=== PATIENT | male | born 1955 | race Caucasian/White ===

== ENCOUNTER 2017-06-18 20:22 | Observation (INO) | payer MEDICARE, MEDICAID ==
[~2017-06-18] VITALS: Ht 193 cm; Wt 91.3 kg
--- NOTE | 2017-06-18 20:38 | ED.ADGEN ---
Past History Past Medical History: Angina, CAD, Hypertension, Hypotension, Other Past Surgical History: Other Smoking: Cigarettes, Greater than 1 pack/day Adult General Chief Complaint Chief Complaint ".. I started getting chest pain.. about 2 hours ago.. I drank a sixpack.. and it was still there so I came in... I ve had [address]. [address] Garrido though I might need another one... I have a follow up this week.;.." Mr. CAN HPI Patient is a 61 year old male who presents with above hx and complaints who follows with Dr Jhaveri at cardiology. Pt. had prior OK's and *8 stents placed , last one 1 yr ago. Pt. does still smoke. Pt rate as constant into Rt shoulder and neck at 05/22, nothing seems to make it better. Pt. states movement of neck and Rt shoulder makes the pain worse. Pt. possible apt. with Dr. Jhaveri at for follow up apt. Review of Systems Review of Systems Constitutional: Denies fever or chills [] Eyes: Denies change in visual acuity, redness, or eye pain [] HENT: Denies nasal congestion or sore throat [] Respiratory: Denies cough or shortness of breath [] Cardiovascular: No additional information not addressed in [facility] [] GI: Denies abdominal pain, nausea, vomiting, bloody stools or diarrhea [] : Denies dysuria or hematuria [] Musculoskeletal: Denies back pain or joint pain [] Integument: Denies rash or skin lesions [] Neurologic: Denies headache, focal weakness or sensory changes [] Endocrine: Denies polyuria or polydipsia [] Family History Family History Non- contributory Current Medications Current Medications Current Medications Medications (Trade) Dose Ordered Sig/Nathalie Start Time Stop Time Status Last Admin Dose Admin Enoxaparin Sodium (Lovenox 100mg Syringe) 90 mg 1X ONCE 06/18/17 21:00 06/18/17 21:01 DC 06/18/17 21:00 90 MG Enoxaparin Sodium (Lovenox 150mg Syringe) 90 mg 1X ONCE 06/18/17 20:45 06/18/17 20:53 DC Lactated Ringer's 1,000 ml @ 1,000 mls/hr Q1H 06/18/17 20:50 06/18/17 21:11 DC 06/18/17 21:04 1,000 MLS/HR Morphine Sulfate (Morphine 2mg Syringe) 2 mg 1X ONCE 06/18/17 20:50 06/18/17 20:51 DC 06/18/17 21:07 2 MG Nitroglycerin (Nitro-Bid Oint) 0.5 inch 1X ONCE 06/18/17 20:50 06/18/17 20:51 DC See Nursing for home meds. Allergies Allergies Allergies Coded Allergies Type Severity Reaction Last Updated Verified No Known Drug Allergies 06/18/17 No Physical Exam Physical Exam Constitutional: , in mild distress, non-toxic appearance. [] HENT: Normocephalic, atraumatic, bilateral external ears normal, oropharynx moist, no oral exudates, nose normal. []Thyroid mass . Lt. Eyes: PERRLA, EOMI, conjunctiva normal, no discharge. [] Neck: Normal range of motion, no tenderness, supple, no stridor. [] Cardiovascular:Heart rate regular rhythm, no murmur [] Lungs & Thorax: Bilateral breath sounds equal at apex with scattered wheezes on auscultation [] Abdomen: Bowel sounds normal, soft, no tenderness, no masses, no pulsatile masses. [] Skin: Warm, dry, no erythema, no rash. [] Back: No tenderness, no CVA tenderness. [] Extremities: No tenderness, no cyanosis, no clubbing, ROM intact, no edema. [] No cording noted on leg. Neurologic: Alert and oriented X 3, normal motor function, normal sensory function, no focal deficits noted. [] Psychologic: Affect normal, judgement normal, mood normal. [] Current Patient Data Vital Signs Vital Signs Date Time Temp Pulse Resp B/P (MAP) Pulse Ox O2 Delivery O2 Flow Rate FiO2 06/18/17 21:24 76 18 96/48 (64) 94 06/18/17 20:39 Room Air 06/18/17 20:25 97.8 Lab Results Laboratory Tests Test 06/18/17 20:20 06/18/17 20:35 06/18/17 20:41 Urine Collection Type Unknown Urine Color Straw Urine Clarity Clear Urine pH 6.0 Urine Specific [place] <=1.005 Urine Protein Neg (NEG-TRACE) Urine Glucose (UA) Neg mg/dL (NEG) Urine Ketones (Stick) Neg mg/dL (NEG) Urine Blood Neg (NEG) Urine Nitrite Neg (NEG) Urine Bilirubin Neg (NEG) Urine Urobilinogen Dipstick 0.2 mg/dL (0.2 mg/dL) Urine Leukocyte Esterase Neg (NEG) Urine RBC 0 /HPF (0-2) Urine WBC Rare /HPF (0-4) Urine Squamous Epithelial Cells None /LPF Urine Bacteria 0 /HPF (0-FEW) Urine Opiates Screen Neg (NEG) Urine Methadone Screen Neg (NEG) Urine Barbiturates Neg (NEG) Urine Phencyclidine Screen Neg (NEG) Urine Amphetamine/Methamphetamine Neg (NEG) Urine Benzodiazepines Screen Neg (NEG) Urine Cocaine Screen Neg (NEG) Urine Cannabinoids Screen Neg (NEG) Urine Ethyl Alcohol Pos (NEG) White Blood Count 9.7 x10^3/uL (4.0-11.0) Red Blood Count 5.34 x10^6/uL (4.30-5.70) Hemoglobin 16.5 g/dL (13.0-17.5) Hematocrit 49.6 % (39.0-53.0) Mean Corpuscular Volume 93 fL (79-100) Mean Corpuscular Hemoglobin 31 pg (25-35) Mean Corpuscular Hemoglobin Concent 33 g/dL (31-37) Red Cell Distribution Width 14.3 % (11.5-14.5) Platelet Count 234 x10^3/uL (140-400) Neutrophils (%) (Auto) 65 % (31-73) Lymphocytes (%) (Auto) 24 % (24-48) Monocytes (%) (Auto) 8 % (0-9) Eosinophils (%) (Auto) 2 % (0-3) Basophils (%) (Auto) 1 % (0-3) Neutrophils # (Auto) 6.3 x10^3uL (1.8-7.7) Lymphocytes # (Auto) 2.4 x10^3/uL (1.0-4.8) Monocytes # (Auto) 0.7 x10^3/uL (0.0-1.1) Eosinophils # (Auto) 0.2 x10^3/uL (0.0-0.7) Basophils # (Auto) 0.1 x10^3/uL (0.0-0.2) Prothrombin Time 10.4 SEC (9.4-11.4) Prothrombin Time INR 1.0 (0.9-1.1) PTT 27 SEC (23-33) D-Dimer (Jyoti) 0.21 mg/L (0.00-0.50) Sodium Level 136 mmol/L (136-145) Potassium Level 3.9 mmol/L (3.5-5.1) Chloride Level 99 mmol/L (98-107) Carbon Dioxide Level 25 mmol/L (21-32) Anion Gap 12 (6-14) Blood Urea Nitrogen 17 mg/dL (8-26) Creatinine 1.0 mg/dL (0.7-1.3) Estimated GFR (Cockcroft-Gault) 76.2 Glucose Level 87 mg/dL (70-99) Calcium Level 8.9 mg/dL (8.5-10.1) Magnesium Level 1.9 mg/dL (1.8-2.4) Total Bilirubin 0.3 mg/dL (0.2-1.0) Direct Bilirubin 0.1 mg/dL (0.0-0.2) Aspartate Amino Transferase (AST) 16 U/L (15-37) Alanine Aminotransferase (ALT) 27 U/L (16-63) Alkaline Phosphatase 72 U/L (46-116) Creatine Kinase 70 U/L (39-308) Creatine Kinase MB (Mass) < 0.5 ng/mL (0.0-3.6) Creatine Kinase MB Relative Index 0.7 % (0-4) Troponin I Quantitative < 0.017 ng/mL (0-0.055) FT-Yaz-Y-Type Natriuretic Peptide 27 pg/mL (0-124) Total Protein 7.3 g/dL (6.4-8.2) Albumin 4.0 g/dL (3.4-5.0) Lipase 312 U/L (73-393) Ethyl Alcohol Level 178 mg/dL (0-10) H POC Troponin I 0.00 ng/ml (<0.08) EKG EKG My interpretation of EKG shows sinus with J-point, PVC, and non-specific inferior changes or pericardial findings. [] No STEMI findings with contralateral changes. Radiology/Procedures Radiology/Procedures My interpretation of CXR shows small cardiac silhouette. COPD changes[] CT no PE, COPD Emphysematous changes, Thyroid mass Course & Med Decision Making Course & Med Decision Making Pertinent Labs and Imaging studies reviewed. (See chart for details). Discussed options of treatment with patient- Transfer to - Dr. Jhaveri ect. Pt. request admit here . Pt. declined transfer at this time. Will be admitted for serial trops. advised he would need transfer if his trop. bumps. or becames elevated. Discussed presentation, testing and tx. plan with Dr. Peralta. She will admit pt. on Tele. [] Final Impression Final Impression 1. Chest Pain. [] 2. Hx. HTN 3. Hypotension 4. Hx. COPD 5. Hx. CADz- Stents x 8 6. 3.2 Cm - Thyroid Mass Problems: Dragon Disclaimer Dragon Disclaimer This electronic medical record was generated, in whole or in part, using a voice recognition dictation system. JOHN NEELY MD Jun 18, 2017 20:38
[2017-06-18] MEDS ORDERED: ENOXAPARIN ** NOTE DOSE ** SYRINGE SQ ONE ×3 (20:45→21:00)
[2017-06-18] MEDS ORDERED: MORPHINE SULFATE 2 MG/ML DISP.SYRIN. IV ONE (20:50)
[2017-06-18] MEDS ORDERED: IV RINGERS SOLUTION,LACTATED 1,000 ML IV SCH (20:50)
[2017-06-18] MEDS ORDERED: NITROGLYCERIN OINT 1 GM PACKET. TP ONE (20:50)
[2017-06-18 20:58] LABS: BASO # 0.1 x10^3/uL (0.0-0.2); BASO % 1 % (0-3); EOS # 0.2 x10^3/uL (0.0-0.7); EOS % 2 % (0-3); HEMATOCRIT 49.6 % (39.0-53.0); HEMOGLOBIN 16.5 g/dL (13.0-17.5); LYMPH # 2.4 x10^3/uL (1.0-4.8); LYMPH % 24 % (24-48); MEAN CORPUSCULAR HEMOGLOBIN 31 pg (25-35); MEAN CORPUSCULAR HGB CONC 33 g/dL (31-37); MEAN CORPUSCULAR VOLUME 93 fL (79-100); MONO # 0.7 x10^3/uL (0.0-1.1); MONO % 8 % (0-9); NEUT # 6.3 x10^3uL (1.8-7.7); NEUT % 65 % (31-73); PLATELET COUNT 234 x10^3/uL (140-400); RED BLOOD COUNT 5.34 x10^6/uL (4.30-5.70); RED CELL DISTRIBUTION WIDTH 14.3 % (11.5-14.5); WHITE BLOOD COUNT 9.7 x10^3/uL (4.0-11.0)
[2017-06-18 21:23] LABS: ALK PHOS 72 U/L (46-116); ALT (SGPT) 27 U/L (16-63); ANION GAP 12 (6-14); AST (SGOT) 16 U/L (15-37); BLOOD UREA NITROGEN 17 mg/dL (8-26); CALCIUM 8.9 mg/dL (8.5-10.1); CARBON DIOXIDE 25 mmol/L (21-32); CHLORIDE 99 mmol/L (98-107); CREATINE KINASE 70 U/L (39-308); DIRECT BILIRUBIN 0.1 mg/dL (0.0-0.2); GFR 76.2; GLUCOSE 87 mg/dL (70-99); LIPASE 312 U/L (73-393); MAGNESIUM 1.9 mg/dL (1.8-2.4); POTASSIUM 3.9 mmol/L (3.5-5.1); SODIUM 136 mmol/L (136-145); TOTAL BILIRUBIN 0.3 mg/dL (0.2-1.0); TOTAL PROTEIN 7.3 g/dL (6.4-8.2)
[2017-06-18 21:25] LABS: AMPHETAMINE/METHAMPHETAMINE NEG (NEG); BARBITURATES NEG (NEG); BENZODIAZEPINES NEG (NEG); CANNABINOIDS NEG (NEG); COCAINE NEG (NEG); METHADONE NEG (NEG); OPIATES NEG (NEG); PHENCYCLIDINE NEG (NEG)
[2017-06-18 21:26] LABS: BACTERIA,URINE 0 /HPF (0-FEW); BILIRUBIN,URINE NEG (NEG); CLARITY,URINE CLEAR; COLOR,URINE STRAW; GLUCOSE,URINE NEG (NEG); NITRITE,URINE NEG (NEG); RBC,URINE 0 /HPF (0-2); UROBILINOGEN,URINE 0.2 mg/dL (0.2 mg/dL); WBC,URINE RARE /HPF (0-4)
[2017-06-18] MEDS ORDERED: ONDANSETRON PF 4 MG/2 ML VIAL. IV PRN (21:45)
[2017-06-18] MEDS ORDERED: CLOPIDOGREL BISULFATE 75 MG TABLET PO ONE (21:45)
[2017-06-18] MEDS ORDERED: IV RINGERS SOLUTION,LACTATED 1,000 ML IV ONE ×2 (21:46→22:00)
[2017-06-18] MEDS ORDERED: MORPHINE SULFATE 10 MG/ML SYRINGE. IV ONE (22:00)
[2017-06-18] MEDS ORDERED: ASPIRIN ENTERIC COATED 81 MG TABLET.DR. PO ONE (22:00)
[2017-06-18] MEDS ORDERED: IOHEXOL 300 MG/ML 75 ML VIAL. IV ONE (22:00)
--- NOTE | 2017-06-18 22:41 | RAD ---
Examination: CT CERVICAL SPINE INDICATION: NECK PAIN, NO KNOWN INJURY COMPARISON: None Available. Technique: 2.0 mm contiguous axial images were obtained from the skull base through the cervicothoracic junction in both bone and soft tissue algorithm. Additional sagittal and coronal reconstructions were also performed. FINDINGS: Vertebral body height and alignment are maintained. Cervical lordosis is preserved. The lateral masses of C1 are aligned upon C2. No fractures identified. The bony canal is patent throughout. Mild multilevel intervertebral disc height loss identified throughout the cervical spine most at C3-C4, C4-C5, C5-C6, C6-C7 vertebral levels. The bilateral facets are well aligned. Mild multilevel uncovertebral degenerative changes. The paraspinous soft tissues are unremarkable. Visualized intracranial contents are unremarkable. Mild emphysematous changes identified in the apical lungs. IMPRESSION: 1. No acute osseous findings. 2. Multilevel mild degenerative changes. If pain persists follow-up MRI is recommended. Electronically signed by: Jamari Boone MD (06/18/2017 10:38 PM) [facility]
[2017-06-18] MEDS: MORPHINE SULFATE 2 MG/ML DISP.SYRIN. IV PRN ×2 (22:47→23:21)
--- NOTE | 2017-06-18 22:50 | RAD ---
Examination: CT angiography chest HISTORY: History of chest pain, shortness of breath COMPARISON: None available Technique: Axial CT angiography images were performed with IV contrast. Coronal sagittal 3-D MIP reformats are performed. Exposure: One or more of the following individualized dose reduction techniques were utilized for this examination: 1. Automated exposure control 2. Adjustment of the mA and/or kV according to patient size 3. Use of iterative reconstruction technique FINDINGS: There is a 3.3 x 2.2 cm hypodense mass identified in the left lobe of the thyroid gland Mild aortic atherosclerosis. Diffuse coronary artery calcifications identified. There is no evidence of filling defect identified in the main pulmonary arterial trunk and right and left main pulmonary arteries. No evidence of filling defect identified in the distal lobar, segmental branches of the pulmonary arteries. Mild emphysematous changes identified in the apical lungs. Minimal bibasilar lung atelectasis. Mild degenerative changes identified in the thoracic spine. The visualized liver, spleen, adrenals grossly appears unremarkable. IMPRESSION: 1. No evidence of pulmonary embolism. 2. Coronary artery calcifications. 2. Emphysematous changes identified in the bilateral lungs. 4. 3.2 cm mass identified in the left lobe of the thyroid gland. Recommend follow-up ultrasound thyroid gland is recommended. Electronically signed by: Jamari Boone MD (06/18/2017 10:47 PM) [facility]
[2017-06-18 23:18] VITALS: BP 129/79
--- NOTE | 2017-06-18 23:35 | NUR ---
Pt was admitted to [address] [place] [address] from ER, via [facility] accompanied by EMS and nursing staff. Pt self transferred from [facility] to bed with stand-by assist, steady gait noted. Pt here for chest pain x2 weeks. Pt normally sees Dr. Jhaveri and already has a Cardiac Cath scheduled for this coming Friday (06/23/17) per pt. Pt was drinking tonight with friends but stated that he normally only drinks a few tie a month socially. Pt is a 1/2-1 ppd smoker, RT consulted for smoking cessation. Vital signs assessed and stable. Pt placed on Telemetry, SR noted on monitor. Health history and home medications reviewed with pt. Plavix & Lovenox for VTE. Pt UTD on Pneumonia vaccine. Pt lives at home with a roommate. Pt was given written information regarding hospital policies, unit procedures and contact persons. Valuables were checked and left at bedside. Box lunch given but will be NPO after midnight, understanding verbalized. Call light within reach.
[2017-06-19] MEDS ORDERED: CLOP75TA PO (01:38)
[2017-06-19] MEDS ORDERED: ROSU40TA29 PO (01:38)
[2017-06-19] MEDS ORDERED: ALBU18HF INH (01:38)
[2017-06-19] MEDS ORDERED: METO50TA2 PO (01:38)
[2017-06-19] MEDS ORDERED: PANT40TA5 PO (01:38)
[2017-06-19] MEDS ORDERED: NITR0.4T22 SL (01:38)
[2017-06-19] MEDS ORDERED: BUDE10.2 INH (01:38)
[2017-06-19] MEDS ORDERED: ASPI81TA50 PO (01:38)
[2017-06-19] MEDS ORDERED: LISI10TA2 PO (01:38)
--- NOTE | 2017-06-19 02:24 | EKG ---
[address] [address] Test Date: 2017-06-18 Test Time: 20:36:06 Pat Name: KYLE PERRY Department: Room: 115 A Gender: M Inclusion Paraeducator: : [id number] Requested By: JOHN NEELY Order Number: [id number] Reading MD: Sean Malone Measurements Intervals [place] Rate: 85 P: 64 SC: 174 QRS: 64 QRSD: 118 T: 37 QT: 362 QTc: 431 Interpretive Statements SINUS RHYTHM ST & T ABNORMALITY, CONSIDER RECENT INFERIOR MYOCARDIAL OR PERICARDIAL DAMAGE Electronically Signed On 06-19-2017 16:41:37 CDT by Sean Malone
[2017-06-19 05:50] VITALS: BP 126/63
[2017-06-19] MEDS ORDERED: NITROGLYCERIN SUBLINGUAL 0.4 MG BOTTLE OF 25. SL PRN (07:45)
[2017-06-19] MEDS ORDERED: ALBUTEROL SULFATE 8GM INHALER. INH PRN (07:45)
--- NOTE | 2017-06-19 08:19 | RAD ---
Indication chest pain. A single view of the chest was obtained. No prior imaging of the chest is available. The heart and pulmonary vessels appear normal. The lungs are clear of acute infiltrates. There is no pleural fluid or pneumothorax. The visualized bony structures appear grossly intact. IMPRESSION: No acute or focal process seen in the chest
[2017-06-19 08:24] LABS: BASO # 0.1 x10^3/uL (0.0-0.2); BASO % 1 % (0-3); EOS # 0.1 x10^3/uL (0.0-0.7); EOS % 2 % (0-3); HEMATOCRIT 48.2 % (39.0-53.0); LYMPH # 1.5 x10^3/uL (1.0-4.8); LYMPH % 20 % (24-48); MEAN CORPUSCULAR HEMOGLOBIN 31 pg (25-35); MEAN CORPUSCULAR HGB CONC 33 g/dL (31-37); MEAN CORPUSCULAR VOLUME 93 fL (79-100); MONO # 0.5 x10^3/uL (0.0-1.1); MONO % 7 % (0-9); NEUT # 5.3 x10^3uL (1.8-7.7); NEUT % 71 % (31-73); PLATELET COUNT 216 x10^3/uL (140-400); RED BLOOD COUNT 5.18 x10^6/uL (4.30-5.70); RED CELL DISTRIBUTION WIDTH 14.5 % (11.5-14.5); WHITE BLOOD COUNT 7.5 x10^3/uL (4.0-11.0)
[2017-06-19] MEDS ORDERED: ALBUTEROL SULFATE 2.5 MG/3 ML NEBU. NEB PRN (08:30)
[2017-06-19 08:39] LABS: CALCIUM 8.7 mg/dL (8.5-10.1); GFR 76.2; POTASSIUM 4.1 mmol/L (3.5-5.1)
[2017-06-19 08:55] LABS: CREATINE KINASE 60 U/L (39-308)
[2017-06-19] MEDS ORDERED: LISINOPRIL 10 MG TABLET PO SCH (09:00)
[2017-06-19] MEDS ORDERED: NON FORMULARY ITEM (Budesonide/Formoterol Fumarate (Symbicort 160-4.5 Mcg Inhaler) 1 PUFF) INH SCH (09:00)
[2017-06-19] MEDS ORDERED: METOPROLOL TART IMMED RELEASE 50 MG TABLET PO SCH (09:00)
[2017-06-19] MEDS ORDERED: ENOXAPARIN ** NOTE DOSE ** SYRINGE SQ SCH (09:00)
[2017-06-19] MEDS ORDERED: BUDESONIDE 0.5 MG/2 ML NEBU NEB SCH (09:00)
[2017-06-19] MEDS ORDERED: ASPIRIN ENTERIC COATED 81 MG TABLET.DR. PO SCH (09:00)
[2017-06-19] MEDS ORDERED: PANTOPRAZOLE 40 MG TABLET. PO SCH (09:00)
[2017-06-19] MEDS ORDERED: CLOPIDOGREL BISULFATE 75 MG TABLET PO SCH (09:00)
--- NOTE | 2017-06-19 09:35 | PDOC2 ---
CONSULT Date of Admission DATE: 06/19/17 TIME: 09:32 Reason for Consult: cp Problem List Problems Medical Problems: (1) Chest pain Status: Acute History of Present Illness Mr Prasad is a 61 year old male with history of coronary artery disease, PCI with stents x 8, hypertension and hyperlipidemia. He presents with complaints of pain across his shoulders, right neck and down right arm that has been ongoing and constant for about 2 weeks. He denies increase with exertion, associated dyspnea, diaphoresis or nausea/vomiting. He reports he has increased pain with movement of his head and neck. He reports he has a follow up with Dr Jhaveri tomorrow and a cardiac cath scheduled for Friday "because I haven't had one in over a year". He denies congestive symptoms, palpitations, lightheadedness or syncope. He denies any significant change in his functional capacity. He does report pain in both legs with walking that resolves with a few minutes of rest and states Dr Jhaveri is planning to look at his leg arteries as well as his heart on Friday. Past Medical History CAD, [place], multiple cardiac stents, hypertension, hyperlipidemia, TIA, GERD, probable peripheral vascular disease Past Surgical History none Family History emphysema, CAD Social History smokes less than 1ppd, occasional ETOH reported (usually once or twice per week , 6 pack) reported, no illicit drugs Current Medications Current Medications Morphine Sulfate (Morphine 2mg Syringe) 2 mg 1X ONCE IV Last administered on 21:07; Start 06/18/17 at 20:50; Stop 06/18/17 at 20:51; Status DC Enoxaparin Sodium (Lovenox 150mg Syringe) 90 mg 1X ONCE SQ ; Start 06/18/17 at 20:45; Stop 06/18/17 at 20:53; Status DC Lactated Ringer's 1,000 ml @ 1,000 mls/hr Q1H IV Last administered on 21:04; Start 06/18/17 at 20:50; Stop 06/18/17 at 21:11; Status DC Enoxaparin Sodium (Lovenox 100mg Syringe) 100 mg 1X ONCE SQ ; Start 06/18/17 at 21:00; Stop 06/18/17 at 21:00; Status DC Nitroglycerin (Nitro-Bid Oint) 0.5 inch 1X ONCE TP ; Start 06/18/17 at 20:50; Stop 06/18/17 at 20:51; Status DC Enoxaparin Sodium (Lovenox 100mg Syringe) 90 mg 1X ONCE SQ Last administered on 06/18/17 21:00; Start 06/18/17 at 21:00; Stop 06/18/17 at 21:01; Status DC Iohexol (Omnipaque 300 Mg/ml) 75 ml 1X ONCE IV Last administered on 06/18/17 22:17; Start 06/18/17 at 22:00; Stop 06/18/17 at 22:01; Status DC Lactated Ringer's 1,000 ml @ As Directed STK-MED ONCE IV ; Start 06/18/17 at 21: 46; Stop 06/18/17 at 21:47; Status DC Ondansetron HCl (Zofran) 4 mg PRN Q4HRS PRN IV NAUSEA/VOMITING; Start 06/18/17 at 21:45; Stop 06/19/17 at 21:44 Morphine Sulfate (Morphine 2mg Syringe) 2 mg PRN Q2HR PRN IV PAIN Last administered on 06/18/17 23:21; Start 06/18/17 at 21:45; Stop 06/19/17 at 21:44 Enoxaparin Sodium (Lovenox 100mg Syringe) 90 mg Q12HR SQ ; Start 06/19/17 at 09: 00 Aspirin (Aspirin Enteric Coated) 81 mg 1X ONCE PO Last administered on 23:19; Start 06/18/17 at 22:00; Stop 06/18/17 at 22:01; Status DC Clopidogrel Bisulfate (Plavix) 75 mg 1X ONCE PO Last administered on 06/18/17 23:20; Start 06/18/17 at 21:45; Stop 06/18/17 at 21:57; Status DC Lactated Ringer's 1,000 ml @ 1,000 mls/hr 1X ONCE IV Last administered on 06/18 21:53; Start 06/18/17 at 22:00; Stop 06/18/17 at 22:59; Status DC Morphine Sulfate (Morphine 10mg Syringe) 2 mg 1X ONCE IV ; Start 06/18/17 at 22: 00; Stop 06/18/17 at 22:01; Status DC Albuterol Sulfate (Ventolin Hfa) 1 puff Q4HRS PRN INH COPD; Start 06/19/17 at 07 :45; Stop 06/19/17 at 08:21; Status DC Aspirin (Aspirin Enteric Coated) 81 mg DAILY PO Last administered on 06/19/17 08:32; Start 06/19/17 at 09:00 Clopidogrel Bisulfate (Plavix) 75 mg DAILY PO Last administered on 06/19/17 08: 33; Start 06/19/17 at 09:00 Lisinopril (Prinivil) 10 mg DAILY PO Last administered on 06/19/17 08:32; Start 06/19/17 at 09:00 Metoprolol Tartrate (Lopressor) 50 mg BID PO Last administered on 06/19/17 08: 33; Start 06/19/17 at 09:00 Nitroglycerin (Nitrostat) 0.4 mg PRN Q5MIN PRN SL Chest Pain; Start 06/19/17 at 07:45 Pantoprazole Sodium (Protonix) 40 mg DAILY PO Last administered on 06/19/17 08: 32; Start 06/19/17 at 09:00 Non-Formulary Medication 1 puff DAILY INH ; Start 06/19/17 at 09:00; Stop at 09:00; Status DC Atorvastatin Calcium (Lipitor) 80 mg QHS PO ; Start 06/19/17 at 21:00 Albuterol Sulfate (Ventolin) 2.5 mg PRN Q4HRS PRN NEB SHORTNESS OF BREATH; Start 06/19/17 at 08:30 Budesonide (Pulmicort) 0.5 mg RTBID NEB ; Start 06/19/17 at 09:00 Albuterol Sulfate (Ventolin) 2.5 mg RTQID NEB ; Start 06/19/17 at 09:00 Active Scripts Active Reported Symbicort 160-4.5 Mcg Inhaler (Budesonide/Formoterol Fumarate) 10.2 Gm Hfa.aer.ad 1 Puff INH DAILY LAST DOSE GIVEN: DATE: TIME: NEXT DOSE DUE: DATE: TIME: Ventolin Hfa Inhaler (Albuterol Sulfate) 18 Gm Hfa.aer.ad 1 Puff INH PRN Q4- 6HRS PRN LAST DOSE GIVEN: DATE: TIME: NEXT DOSE DUE: DATE: TIME: Aspir-Low (Aspirin) 81 Mg Tablet.dr 81 Mg PO DAILY LAST DOSE GIVEN: DATE: TIME: NEXT DOSE DUE: DATE: TIME: Rosuvastatin Calcium 40 Mg Tablet 40 Mg PO HS LAST DOSE GIVEN: DATE: TIME: NEXT DOSE DUE: DATE: TIME: Clopidogrel (Clopidogrel Bisulfate) 75 Mg Tablet 75 Mg PO DAILY LAST DOSE GIVEN: DATE: TIME: NEXT DOSE DUE: DATE: TIME: Pantoprazole Sodium 40 Mg Tablet.dr 40 Mg PO DAILY LAST DOSE GIVEN: DATE: TIME: NEXT DOSE DUE: DATE: TIME: Metoprolol Tartrate 50 Mg Tablet 50 Mg PO BID LAST DOSE GIVEN: DATE: TIME: NEXT DOSE DUE: DATE: TIME: NITROGLYCERIN SubLingual (Nitroglycerin) 0.4 Mg Tab.subl 0.4 Mg SL PRN PRN LAST DOSE GIVEN: DATE: TIME: NEXT DOSE DUE: DATE: TIME: Lisinopril 10 Mg Tablet 10 Mg PO DAILY LAST DOSE GIVEN: DATE: TIME: NEXT DOSE DUE: DATE: TIME: Allergies: Coded Allergies: No Known Drug Allergies (Unverified , 06/18/17) Review of System as per HPI or negative General: Alert, Oriented X3, Cooperative, No acute distress HEENT: Atraumatic, EOMI, Mucous membr. moist/pink Lungs: Clear to auscultation Heart: Regular rate, Normal S1, Normal S2 Abdomen: Normal bowel sounds, Soft, No tenderness Extremities: No cyanosis, No edema, Other (decreased but palpable DP pulses) Neuro: Normal speech, Strength at 5/5 X4 ext, Other (reproducible tenderness right neck/shoulder pain ) Psych/Mental Status: Mental status NL, Mood NL VITALS Vital Signs Date Time Temp Pulse Resp B/P (MAP) Pulse Ox O2 Delivery O2 Flow Rate FiO2 06/19/17 08:33 86 126/63 06/19/17 07:59 Room Air 06/19/17 05:50 98.2 20 94 Labs Laboratory Tests Test 06/18/17 20:20 06/18/17 20:35 06/18/17 20:41 06/19/17 02:40 Urine Collection Type Unknown Urine Color Straw Urine Clarity Clear Urine pH 6.0 Urine Specific [place] <=1.005 Urine Protein Neg (NEG-TRACE) Urine Glucose (UA) Neg mg/dL (NEG) Urine Ketones (Stick) Neg mg/dL (NEG) Urine Blood Neg (NEG) Urine Nitrite Neg (NEG) Urine Bilirubin Neg (NEG) Urine Urobilinogen Dipstick 0.2 mg/dL (0.2 mg/dL) Urine Leukocyte Esterase Neg (NEG) Urine RBC 0 /HPF (0-2) Urine WBC Rare /HPF (0-4) Urine Squamous Epithelial Cells None /LPF Urine Bacteria 0 /HPF (0-FEW) Urine Opiates Screen Neg (NEG) Urine Methadone Screen Neg (NEG) Urine Barbiturates Neg (NEG) Urine Phencyclidine Screen Neg (NEG) Urine Amphetamine/Methamphetamine Neg (NEG) Urine Benzodiazepines Screen Neg (NEG) Urine Cocaine Screen Neg (NEG) Urine Cannabinoids Screen Neg (NEG) Urine Ethyl Alcohol Pos (NEG) White Blood Count 9.7 x10^3/uL (4.0-11.0) Red Blood Count 5.34 x10^6/uL (4.30-5.70) Hemoglobin 16.5 g/dL (13.0-17.5) Hematocrit 49.6 % (39.0-53.0) Mean Corpuscular Volume 93 fL (79-100) Mean Corpuscular Hemoglobin 31 pg (25-35) Mean Corpuscular Hemoglobin Concent 33 g/dL (31-37) Red Cell Distribution Width 14.3 % (11.5-14.5) Platelet Count 234 x10^3/uL (140-400) Neutrophils (%) (Auto) 65 % (31-73) Lymphocytes (%) (Auto) 24 % (24-48) Monocytes (%) (Auto) 8 % (0-9) Eosinophils (%) (Auto) 2 % (0-3) Basophils (%) (Auto) 1 % (0-3) Neutrophils # (Auto) 6.3 x10^3uL (1.8-7.7) Lymphocytes # (Auto) 2.4 x10^3/uL (1.0-4.8) Monocytes # (Auto) 0.7 x10^3/uL (0.0-1.1) Eosinophils # (Auto) 0.2 x10^3/uL (0.0-0.7) Basophils # (Auto) 0.1 x10^3/uL (0.0-0.2) Prothrombin Time 10.4 SEC (9.4-11.4) Prothromb Time International Ratio 1.0 (0.9-1.1) Activated Partial Thromboplast Time 27 SEC (23-33) D-Dimer (Jyoti) 0.21 mg/L (0.00-0.50) Sodium Level 136 mmol/L (136-145) Potassium Level 3.9 mmol/L (3.5-5.1) Chloride Level 99 mmol/L (98-107) Carbon Dioxide Level 25 mmol/L (21-32) Anion Gap 12 (6-14) Blood Urea Nitrogen 17 mg/dL (8-26) Creatinine 1.0 mg/dL (0.7-1.3) Estimated GFR (Cockcroft-Gault) 76.2 Glucose Level 87 mg/dL (70-99) Calcium Level 8.9 mg/dL (8.5-10.1) Magnesium Level 1.9 mg/dL (1.8-2.4) Total Bilirubin 0.3 mg/dL (0.2-1.0) Direct Bilirubin 0.1 mg/dL (0.0-0.2) Aspartate Amino Transf (AST/SGOT) 16 U/L (15-37) Alanine Aminotransferase (ALT/SGPT) 27 U/L (16-63) Alkaline Phosphatase 72 U/L (46-116) Creatine Kinase 70 U/L (39-308) 67 U/L (39-308) Creatine Kinase MB (Mass) < 0.5 ng/mL (0.0-3.6) 0.6 ng/mL (0.0-3.6) Creatine Kinase MB Relative Index 0.7 % (0-4) 0.9 % (0-4) Troponin I Quantitative < 0.017 ng/mL (0-0.055) < 0.017 ng/mL (0-0.055) VD-Xba-Z-Type Natriuretic Peptide 27 pg/mL (0-124) Total Protein 7.3 g/dL (6.4-8.2) Albumin 4.0 g/dL (3.4-5.0) Lipase 312 U/L (73-393) Ethyl Alcohol Level 178 mg/dL (0-10) Bedside Troponin I 0.00 ng/ml (<0.08) Test 06/19/17 08:12 White Blood Count 7.5 x10^3/uL (4.0-11.0) Red Blood Count 5.18 x10^6/uL (4.30-5.70) Hemoglobin 16.0 g/dL (13.0-17.5) Hematocrit 48.2 % (39.0-53.0) Mean Corpuscular Volume 93 fL (79-100) Mean Corpuscular Hemoglobin 31 pg (25-35) Mean Corpuscular Hemoglobin Concent 33 g/dL (31-37) Red Cell Distribution Width 14.5 % (11.5-14.5) Platelet Count 216 x10^3/uL (140-400) Neutrophils (%) (Auto) 71 % (31-73) Lymphocytes (%) (Auto) 20 % (24-48) Monocytes (%) (Auto) 7 % (0-9) Eosinophils (%) (Auto) 2 % (0-3) Basophils (%) (Auto) 1 % (0-3) Neutrophils # (Auto) 5.3 x10^3uL (1.8-7.7) Lymphocytes # (Auto) 1.5 x10^3/uL (1.0-4.8) Monocytes # (Auto) 0.5 x10^3/uL (0.0-1.1) Eosinophils # (Auto) 0.1 x10^3/uL (0.0-0.7) Basophils # (Auto) 0.1 x10^3/uL (0.0-0.2) Sodium Level 140 mmol/L (136-145) Potassium Level 4.1 mmol/L (3.5-5.1) Chloride Level 105 mmol/L (98-107) Carbon Dioxide Level 29 mmol/L (21-32) Anion Gap 6 (6-14) Blood Urea Nitrogen 14 mg/dL (8-26) Creatinine 1.0 mg/dL (0.7-1.3) Estimated GFR (Cockcroft-Gault) 76.2 Glucose Level 110 mg/dL (70-99) Calcium Level 8.7 mg/dL (8.5-10.1) Creatine Kinase 60 U/L (39-308) Creatine Kinase MB (Mass) < 0.5 ng/mL (0.0-3.6) Creatine Kinase MB Relative Index 0.8 % (0-4) Troponin I Quantitative < 0.017 ng/mL (0-0.055) Images EKG - sinus rhythm with non specific changes CXR - no acute abn CT chest - IMPRESSION: 1. No evidence of pulmonary embolism. 2. Coronary artery calcifications. 3. Emphysematous changes identified in the bilateral lungs. 4. 3.2 cm mass identified in the left lobe of the thyroid gland. Recommend follow-up ultrasound thyroid gland is recommended. CT c spine 1. No acute osseous findings. 2. Multilevel mild degenerative changes. If pain persists follow-up MRI is recommended. Assessment/Plan 1. shoulder,arm pain - likely radicular in nature. Prior anginal symptoms were shoulder pain, however no acute EKG changes, normal cardiac enzymes x 3 sets and he reports follow up tomorrow with his normal curtain stretcher with heart cath for Friday. 2. CAD with prior multiple stents - continue medical therapy with aspirin, beta blockers, statin therapy and heart cath as scheduled with primary curtain stretcher. 3. hypertension - home medications 4. hyperlipidemia - continue statin, FLP pending 5. tobaccoism - cessation encouraged Problems: POLO ELLINGTON APRN Jun 19, 2017 09:35
[2017-06-19] MEDS: ALBUTEROL SULFATE 2.5 MG/3 ML NEBU. NEB SCH ×2 (09:46→10:42)
[2017-06-19 10:07] VITALS: BP 106/70
--- NOTE | 2017-06-19 10:49 | NUR ---
Patient dismissed to home. Will follow up with Dr. Jhaveri as scheduled tomorrow. IV site d/c'd per protocol without difficulty. Reviewed home medications, follow-up instructions, and reasons to seek immediate medical attention with patient. Received verbalization of understanding, denies questions/needs. Patient awaiting ride at this time.
--- NOTE | 2017-06-19 16:31 | SSS ---
ADMIT DATE: Stay was greater than 8 hours and less than 24. Primary care was given by myself, Dr. Rafy Maguire. DISCHARGE DIAGNOSES: 1. Chest pain, myocardial infarction ruled out. 2. Coronary artery disease with multiple stents. 3. Thyroid mass - incidental finding. 4. Chronic obstructive pulmonary disease. 5. Peripheral vascular disease. 6. Tobacco use disorder. 7. Hypertension. 8. Hyperlipidemia. 9. Alcohol use ____. HOSPITAL COURSE: This is a 61-year-old male with known coronary artery disease, who presented to the Emergency Room with pain in the right arm and neck. It has been ongoing for a few weeks and was similar to anginal-type pain he has had in the past. Denies any exertional symptoms or whether he was doing anything, just pushing furniture or lifting anything heavy or exerting himself. Denies any diaphoresis. PAST MEDICAL HISTORY: The patient states "I have had eight heart attacks" starting in 2007, he has several stents. As a matter of fact, he is having a heart cath this coming Friday; also peripheral vascular disease, tobaccoism, occasional alcohol. MEDICATIONS: Reviewed. ALLERGIES: None. REVIEW OF SYSTEMS: Negative for weight loss. Positive for insomnia. Otherwise, negative. FAMILY HISTORY: Mother had heart problems. SOCIAL HISTORY: He smokes around a pack a day. He is disabled. 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 OBJECTIVE: VITAL SIGNS: Blood pressure 106/70, pulse 72, respirations 14, temperature 97.7, pulse ox is 98% on room air. Height 76 inches, weight 201.19 pounds. GENERAL: Somewhat unkempt male, in no acute distress. HEENT: His hearing is normal. His eyes are clear. His nose is patent. His throat was clear. NECK: Supple, without adenopathy, could not appreciate the thyroid mass. LUNGS: Clear to auscultation. CARDIOVASCULAR: Regular rhythm and rate. ABDOMEN: Soft, nontender. EXTREMITIES: Without edema, very weak dorsalis pedis pulses, could not palpate anterior tibial. Extremities are warm, however. LABORATORY DATA: Troponins negative x 3. D-dimer was negative. Urine was negative. PLAN: Discharge home. Follow up with a thyroid ultrasound. I did discuss this with him personally. Recommended also strongly that he quit smoking. He has a Cardiology appointment tomorrow, heart cath this coming the . RAFY MAGUIRE DO DR: MISBAH/klaudia JOB#: [id number] / [id number]
[2017-06-19] MEDS ORDERED: ATORVASTATIN CALCIUM 20 MG TABLET PO SCH (21:00)
== END 2017-06-19 10:54 | disposition home or self-care (01) ==
LOC: ER 20:22 → 1 SOUTH 21:30
PROVIDERS: ADMIT Family Medicine; ATTEND Family Medicine
DX: R07.89 Other chest pain (principal); I25.10 Atherosclerotic heart disease of native coronary artery without angina pectoris; J44.9 Chronic obstructive pulmonary disease, unspecified; E78.5 Hyperlipidemia, unspecified; F17.210 Nicotine dependence, cigarettes, uncomplicated; I10 Essential (primary) hypertension; I73.9 Peripheral vascular disease, unspecified; K21.9 Gastro-esophageal reflux disease without esophagitis; E04.9 Nontoxic goiter, unspecified; Z82.49 Family history of ischemic heart disease and other diseases of the circulatory system; Z86.73 Personal history of transient ischemic attack (TIA), and cerebral infarction without residual deficits; Z95.5 Presence of coronary angioplasty implant and graft; Z71.6 Tobacco abuse counseling
CPT/HCPCS: 36415; 71010; 71275; 72125; 80048; 80061; 80076; 80307; 81001; 82553; 83690; 83735; 83880; 84443; 84484; 85025; 85379; 85610; 85730; 93005; 94640; 94760; 96361; 96372; 96374; 96376; 99285; 99406; G0378; G0480; J1650; J2270; J7120; J7613; J7626; Q9967; G0379; G0479

== ENCOUNTER 2020-07-19 20:51 | Emergency (ER) | payer MEDICARE, MEDICAID ==
[~2020-07-19] VITALS: Ht 193 cm; Wt 89.8 kg
[~2020-07-19 20:51] MED LIST: ALBU2.5V8 INH; ASPI81TA50 PO; BUDE10.2 INH; CLOP75TA PO; LISI10TA2 PO; METO50TA6 PO; NITR0.4T22 SL; PANT40TA6 PO; ROSU40TA22 PO
[2020-07-19 20:55] VITALS: BP 135/79
--- NOTE | 2020-07-19 21:08 | PHYS DOC ---
Past History Past Medical History: Angina, CAD, Hypertension, Hypotension, Other Past Surgical History: Other Smoking: Cigarettes, Greater than 1 pack/day Alcohol Use: Heavy Drug Use: None General Adult EDM: Chief Complaint: CHEST PAIN HPI: HPI: Patient is a 64-year-old male who presents with right sided shoulder and arm pain. Patient states that the pain started 2 weeks ago when he tripped on a rug at home and fell on his arm. The pain has worsened in the past couple days. He currently has numbness and tingling down the right arm. He denies any old injuries in the right shoulder. The pain is constant and intermittently sharp. He denies any chest pain, left sided arm pain, shortness of breath, nausea, or vomiting. Review of Systems: Review of Systems: Constitutional: Denies fever or chills Eyes: Denies redness or eye pain HENT: Denies nasal congestion or sore throat Respiratory: Denies cough or shortness of breath Cardiovascular: Denies chest pain or palpitations GI: Denies abdominal pain, nausea, or vomiting : Denies dysuria or hematuria Musculoskeletal: Reports right sided upper back pain and right shoulder pain Integument: Denies rash or skin lesions Neurologic: Denies headache, reports numbness and tingling down his right arm Complete systems were reviewed and found to be within normal limits, except as documented in this note. Heart Score: HEART Score for Chest Pain: HEART Score for Chest Pain Response (Comments) Value History Slighlty/Non-Suspicious 0 ECG Normal 0 Age >45 - < 65 1 Risk Factors 1 or 2 Risk Factors 1 Troponin < Normal Limit 0 Total 2 Risk Factors: Risk Factors: DM, Current or recent (<one month) smoker, HTN, HLP, family history of CAD, obesity. Risk Scores: Score 0 - 3: 2.5% MACE over next 6 weeks - Discharge Home Score 4 - 6: 20.3% MACE over next 6 weeks - Admit for Clinical Observation Score 7 - 10: 72.7% MACE over next 6 weeks - Early Invasive Strategies Allergies: Allergies: Allergies Coded Allergies Type Severity Reaction Last Updated Verified No Known Drug Allergies 06/18/17 No Physical Exam: PE: Constitutional: Well developed, well nourished, no acute distress, non-toxic appearance HENT: Normocephalic, atraumatic Eyes: PERRL, EOMI, conjunctiva normal, no discharge Neck: Normal range of motion, no tenderness, supple Lungs & Thorax: No respiratory distress, equal chest rise and fall Abdomen: Soft, no tenderness Skin: Warm, dry, no erythema, no rash Back: Tenderness to palpation of the right paraspinal musculature at the levels of T1-T7, no CVA tenderness Extremities: Tenderness to palpation of the right scapular spine, ROM intact, no edema, radial pulses 3+/4 bilaterally Neurologic: Alert and oriented X 3, normal motor function, normal sensory function, no focal deficits noted Psychologic: Affect normal, judgment normal EKG: EKG: EKG at 2057 is normal sinus rhythm with a heart rate of 86, OH 178, QRS 112, QT/QTC 362/436 ms, with no ST elevations. Course & Med Decision Making: Course & Med Decision Making Pertinent Labs and Imaging studies reviewed. (See chart for details) Patient is a 64-year-old male who presents to the emergency room with right- sided shoulder and arm pain. Due to his extensive cardiac history, a cardiac work-up was ordered, which came back within normal limits. HEART score was at a 2. He was given a muscle relaxer and pain medication for his shoulder pain with improvement of his symptoms. I suspect he may have a muscle strain secondary to his fall 2 weeks ago. Patient was placed in a sling for comfort. He will be sent home with prescriptions for a muscle relaxer and [place]. Patient stable for discharge with outpatient follow-up with orthopedic surgery i f symptoms persist or worsen. Discussed findings and plan with patient, who acknowledges understanding and agreement. Juliette Disclaimer: Juliette Disclaimer: This electronic medical record was generated, in whole or in part, using a voice recognition dictation system. Departure Departure: Impression: Primary Impression: Muscle strain, shoulder region Qualified Codes: S46.911A - Strain of unspecified muscle, fascia and tendon at shoulder and upper arm level, right arm, initial encounter Disposition: 01 HOME/RESIDENCE PRIOR TO ADM Condition: STABLE Referrals: [facility] (PCP) Patient Instructions: Muscle Strain, Ildx-nd-Lfiz, Shoulder Pain, Nfgn-jw-Mnsm Scripts Hydrocodone Bit/Acetaminophen (NORCO 5-325 TABLET) 1 Each Tablet 0.5-1 TAB PO Q6HRS PRN for PAIN, #10 TAB Prov: GINNY VALENZUELA DO 07/19/20 Orphenadrine Citrate (ORPHENADRINE CITRATE) 100 Mg Tablet.er 1 TAB PO BID PRN for MUSCLE PAIN, #14 TAB Prov: GINNY VALENZUELA DO 07/19/20 GINNY VALENZUELA DO Jul 19, 2020 21:08
[2020-07-19] MEDS ORDERED: ORPHENADRINE CITRATE 60 MG/2 ML VIAL. IV ONE (21:15)
[2020-07-19] MEDS ORDERED: KETOROLAC 15 MG/ML VIAL. IVP ONE (21:15)
[2020-07-19] MEDS ORDERED: ASPIRIN 325 MG TABLET PO ONE (21:15)
--- NOTE | 2020-07-19 21:17 | EKG ---
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
[2020-07-19 21:39] LABS: BASO # 0.1 x10^3/uL (0.0-0.2); BASO % 1 % (0-3); EOS # 0.2 x10^3/uL (0.0-0.7); EOS % 4 % (0-3); HEMATOCRIT 46.1 % (39.0-53.0); HEMOGLOBIN 15.1 g/dL (13.0-17.5); LYMPH # 2.3 x10^3/uL (1.0-4.8); LYMPH % 35 % (24-48); MEAN CORPUSCULAR HEMOGLOBIN 32 pg (25-35); MEAN CORPUSCULAR HGB CONC 33 g/dL (31-37); MEAN CORPUSCULAR VOLUME 97 fL (79-100); MONO # 0.6 x10^3/uL (0.0-1.1); MONO % 9 % (0-9); NEUT # 3.4 x10^3uL (1.8-7.7); NEUT % 51 % (31-73); PLATELET COUNT 282 x10^3/uL (140-400); RED BLOOD COUNT 4.77 x10^6/uL (4.30-5.70); RED CELL DISTRIBUTION WIDTH 15.5 % (11.5-14.5); WHITE BLOOD COUNT 6.6 x10^3/uL (4.0-11.0)
[2020-07-19 21:40] LABS: CALCIUM 8.7 mg/dL (8.5-10.1); GFR 75.5; POTASSIUM 3.7 mmol/L (3.5-5.1)
[2020-07-19 21:58] LABS: MAGNESIUM 2.4 mg/dL (1.8-2.4); TOTAL BILIRUBIN 0.2 mg/dL (0.2-1.0); TOTAL PROTEIN 8.2 g/dL (6.4-8.2)
[2020-07-19] MEDS ORDERED: ORPH-16 PO (22:31)
[2020-07-19] MEDS ORDERED: HYDR-3165 PO (22:31)
--- NOTE | 2020-07-19 22:39 | RAD ---
Exam: Right shoulder 3 views INDICATION: Pain, history of TECHNIQUE: Frontal view of the left shoulder with internal and external rotation and transscapular Y views. Comparisons: None FINDINGS: Bone mineralization is normal. No acute or healed fractures. Soft tissues are unremarkable. Joint spaces are well-maintained. IMPRESSION: No acute osseous abnormality. Electronically signed by: José Luis Simental MD (07/19/2020 10:37 PM) ANIKET
--- NOTE | 2020-07-19 22:41 | RAD ---
Exam: Chest one view INDICATION: Pain, history of fall TECHNIQUE: Frontal view of the chest Comparisons: 06/18/2017 FINDINGS: The cardiomediastinal silhouette and pulmonary vessels are within normal limits. The lung and pleural spaces are clear. IMPRESSION: No acute cardiopulmonary process. Electronically signed by: José Luis Simentla MD (07/19/2020 10:38 PM) RONNY
== END 2020-07-19 22:52 | disposition home or self-care (01) ==
LOC: ER 20:51
DX: S46.911A Strain of unspecified muscle, fascia and tendon at shoulder and upper arm level, right arm, initial encounter (principal); M54.6 Pain in thoracic spine; I25.10 Atherosclerotic heart disease of native coronary artery without angina pectoris; I10 Essential (primary) hypertension; F17.210 Nicotine dependence, cigarettes, uncomplicated; F10.20 Alcohol dependence, uncomplicated; Y90.9 Presence of alcohol in blood, level not specified; W01.0XXA Fall on same level from slipping, tripping and stumbling without subsequent striking against object, initial encounter; Y93.89 Activity, other specified; Y92.098 Other place in other non-institutional residence as the place of occurrence of the external cause; Y99.8 Other external cause status
CPT/HCPCS: 36415; 71045; 73030; 80053; 82553; 83690; 83735; 83880; 84484; 85025; 85610; 85730; 93005; 96374; 96375; 99285; J1885; J2360

== ENCOUNTER 2020-10-22 20:03 | Emergency (ER) | payer MEDICARE, MEDICAID ==
[~2020-10-22] VITALS: Ht 193 cm; Wt 89.8 kg
[~2020-10-22 20:03] MED LIST changes: +HYDR-3165 PO; +ORPH-16 PO
[2020-10-22] MEDS ORDERED: IV NORMAL SALINE 1,000ML 1,000 ML IV ONE (20:30)
[2020-10-22] MEDS ORDERED: NITROGLYCERIN SUBLINGUAL 0.4 MG BOTTLE OF 25. SL PRN (20:30)
[2020-10-22] MEDS ORDERED: MORPHINE SULFATE 4 MG/ML DISP.SYRIN. IV ONE ×2 (21:00→22:00)
--- NOTE | 2020-10-22 21:10 | PHYS DOC ---
Past History Past Medical History: Angina, CAD, COPD, Hypertension, Hypotension, [place] Past Surgical History: Other Additional Past Surgical Histo: 8-10 cardiac stents Smoking: Cigarettes, Greater than 1 pack/day Alcohol Use: Heavy Drug Use: None Adult General Chief Complaint Chief Complaint: CHEST PAIN HPI HPI Patient is a 64-year-old male presents emergency department complaining that 3 days ago he had a "annoying feeling "to both of his arms so he decided to drink "a whole lot of beer "to try to deal with his annoying feeling of his arms. Patient states that after approximately 15 beers today he noticed that his chest started hurting and worried that since he has had 8 stents placed in the past that he might be having yet another heart attack. Patient is also worried that he tested positive with his Cologuard a couple of weeks ago and is still waiting for GI appointment. Patient reports his pain is a 7/10 on a 1-10 pain scale. Patient states the pain increases with deep breath and movement of his upper extremities. Patient denies recent injury to his chest. Patient denies shortness of breath. Patient denies cough congestion or chest palpitations. Patient denies nausea vomiting or diarrhea. Patient denies diaphoretic episodes. Patient denies recent fever or chills. Patient denies any other physical ailments or physical complaints. Patient reports he is a cigarette smoker, smokes occasional marijuana, does not use other illicit drugs, drinks beer daily. Review of Systems Review of Systems 14 body systems of review of systems have been reviewed. See HPI for pertinent positives and negative responses, otherwise all other systems are negative, nonpertinent or noncontributory. Current Medications Current Medications Sublingual nitroglycerin as needed. Current Medications Medications (Trade) Dose Ordered Sig/Nathalie Start Time Stop Time Status Last Admin Dose Admin Nitroglycerin (Nitrostat) 0.4 mg PRN Q5MIN PRN 10/22/20 20:30 Sodium Chloride 1,000 ml @ 1,000 mls/hr 1X ONCE 10/22/20 20:30 10/22/20 21:29 Allergies Allergies Allergies Coded Allergies Type Severity Reaction Last Updated Verified No Known Drug Allergies 06/18/17 No Physical Exam Physical Exam Constitutional: Well developed, well nourished, no acute distress, non-toxic appearance. HENT: Normocephalic, atraumatic, bilateral external ears normal, oropharynx moist, no oral exudates, nose normal. Eyes: PERRLA, EOMI, conjunctiva normal, no discharge. Neck: Normal range of motion, no tenderness, supple, no stridor. Cardiovascular:Heart rate regular rhythm, no murmur, heart sounds S1-S2, PMI just to the left of sternum intercostal ribs 4 5 region. Lungs & Thorax: Bilateral breath sounds clear to auscultation all lung castillo, no adventitious lung sounds appreciated. Sternal chest pain without radiation reproducible to palpation in the sternum. Reproducible to movement of left upper extremity. Reproducible to deep inspiration and expiration. Abdomen: Bowel sounds normal, soft, no tenderness, no masses, no pulsatile masses. Skin: Warm, dry, no erythema, no rash. Back: No tenderness, no CVA tenderness. Extremities: No tenderness, no cyanosis, no clubbing, ROM intact, no edema. Neurologic: Alert and oriented X 3, normal motor function, normal sensory function, no focal deficits noted. Psychologic: Affect normal, judgement normal, mood normal. Current Patient Data Vital Signs Vital Signs Date Time Temp Pulse Resp B/P (MAP) Pulse Ox O2 Delivery O2 Flow Rate FiO2 10/22/20 20:22 97.9 85 16 151/81 (104) 95 Room Air Lab Results Laboratory Tests Test 10/22/20 20:55 White Blood Count 7.3 x10^3/uL Red Blood Count 4.89 x10^6/uL Hemoglobin 15.3 g/dL Hematocrit 46.2 % Mean Corpuscular Volume 94 fL Mean Corpuscular Hemoglobin 31 pg Mean Corpuscular Hemoglobin Concent 33 g/dL Red Cell Distribution Width 14.3 % Platelet Count 207 x10^3/uL Neutrophils (%) (Auto) 65 % Lymphocytes (%) (Auto) 24 % Monocytes (%) (Auto) 7 % Eosinophils (%) (Auto) 2 % Basophils (%) (Auto) 1 % Neutrophils # (Auto) 4.7 x10^3uL Lymphocytes # (Auto) 1.8 x10^3/uL Monocytes # (Auto) 0.5 x10^3/uL Eosinophils # (Auto) 0.2 x10^3/uL Basophils # (Auto) 0.1 x10^3/uL Sodium Level 135 mmol/L Potassium Level 3.8 mmol/L Chloride Level 100 mmol/L Carbon Dioxide Level 25 mmol/L Anion Gap 10 Blood Urea Nitrogen 12 mg/dL Creatinine 1.0 mg/dL Estimated GFR (Cockcroft-Gault) 75.5 BUN/Creatinine Ratio 12 Glucose Level 90 mg/dL Calcium Level 8.3 mg/dL Phosphorus Level 4.9 mg/dL Magnesium Level 2.4 mg/dL Total Bilirubin 0.2 mg/dL Aspartate Amino Transf (AST/SGOT) 16 U/L Alanine Aminotransferase (ALT/SGPT) 24 U/L Alkaline Phosphatase 72 U/L Creatine Kinase 74 U/L Creatine Kinase MB (Mass) 0.7 ng/mL Creatine Kinase MB Relative Index 0.9 % Troponin I Quantitative < 0.017 ng/mL ON-Aey-T-Type Natriuretic Peptide 19 pg/mL Total Protein 7.7 g/dL Albumin 3.8 g/dL Albumin/Globulin Ratio 1.0 Lipase 254 U/L Ethyl Alcohol Level 281 mg/dL Current Medications Medications (Trade) Dose Ordered Sig/Nathalie Route PRN Reason Start Time Stop Time Status Last Admin Dose Admin Nitroglycerin (Nitrostat) 0.4 mg PRN Q5MIN PRN SL CHEST PAIN 10/22/20 20:30 10/22/20 20:58 DC Sodium Chloride 1,000 ml @ 1,000 mls/hr 1X ONCE IV 10/22/20 20:30 10/22/20 21:29 DC 10/22/20 20:52 Morphine Sulfate (Morphine 4mg Syringe) 4 mg 1X ONCE IV 10/22/20 21:00 10/22/20 21:01 DC 10/22/20 21:03 EKG EKG EKG performed at 2046 by house respiratory therapy staff, heart rate 82 bpm normal sinus rhythm without ectopy. NV interval 0.198, QTc interval 0.428, patient has approximate 1.[address] elevation in leads II, III and aVF. EKG inter preted by ED attending physician Dr. Brown. Second EKG performed 2117 by house respiratory therapy staff, heart rate 80 bpm, NV interval 0.190, QTc interval 0.442, no ST elevation changes from previous EKG in leads II, III, and aVF. EKG interpreted by ED attending physician Dr. Brown. Radiology/Procedures Radiology/Procedures SEX: M EXAM STATUS: REG ER ORD. PHYSICIAN: GINNY ROGER APRN REASON: CHEST PAIN PROCEDURE: CHEST PA & LATERAL Chest radiograph 10/22/2020 8:32 PM INDICATION: Chest pain COMPARISON: 07/19/2020 TECHNIQUE: Frontal and lateral views of the chest are provided. FINDINGS: The cardiomediastinal silhouette is within normal limits. There are no pleural effusions. There is no pulmonary vascular congestion. There is no pneumothorax. The lungs are clear. Pulmonary emphysematous changes are present. No significant osseous abnormality is identified. IMPRESSION: Pulmonary emphysematous changes without acute cardiopulmonary process. Electronically signed by: Miki Camacho MD (10/22/2020 8:53 PM) [facility] DICTATED AND SIGNED BY: MIKI CAMACHO MD DATE: 10/22/202052 CC: GINNY ROGER APRN; ALAN BROWN MD; [facility] ~MTH0 0 Heart Score HEART Score for Chest Pain: HEART Score for Chest Pain Response (Comments) Value History Highly Suspicious 2 ECG Nonspecific Repolarizatio (1.5 mm elevation in leads II, III and aVF) 1 Age >45 - < 65 1 Risk Factors >3 Risk Factors or Hx CAD 2 Troponin < Normal Limit 0 Total 6 Risk Factors: Risk Factors: DM, Current or recent (<one month) smoker, HTN, HLP, family history of CAD, obesity. Risk Scores: Risk Factors: DM, Current or recent (<one month) smoker, HTN, HLP, family his tory of CAD, obesity. Course & Med Decision Making Course & Med Decision Making Pertinent Labs and Imaging studies reviewed. (See chart for details) 64-year-old male presents emergency department complaining of bilateral arm discomfort starting 3 days ago and has tried to relieve his discomfort with drinking beer. Patient reports he drank 15 beers today and then his chest started hurting. A chest pain work-up was initiated in the emergency department. Initial EKG concerning with 1.5 mm elevation in leads II, III and aVF, pending troponinI result Repeat EKG without change from previous EKG, still pending troponin I result Cardiac enzymes were not elevated. 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 [facility] transfer team contacted. Awaiting callback. Discussed patient case with [facility] transferring physician Dr. Osborn, Dr. Osborn recommended that I fax EKGs to their STEMI team and await further contact for transfer. At 2215 patient stated to me he wishes to leave AGAINST MEDICAL ADVICE, patient stated "I did not want to be transferred somewhere with oh or put more stents in me I wanted to sign out AMA and go home "discussed with patient that he could suffer any permanent disability to include loss of life. Also told patient that I fear that if this condition became worse that he would most likely . Patient states that he really does not want to go through any more cardiac stenting procedures, that he does not want to have open heart surgery. Reviewed risk versus benefits of leaving AGAINST MEDICAL ADVICE versus transfer to higher level of care facility to further evaluate heart condition, patient adamantly refused transfer to another facility, patient refused admission to this facility, patient refused admission to any hospital. It is of my opinion that the patient is clinically sober, the patient is able to make his own educated medical decisions, the patient is alert and oriented x3 and in no apparent distress, the patient is not toxic, the patient is able to sign his own AMA form. The patient signed the AMA form and was witnessed by ED staff. The patient's IV was removed and the patient ambulated out of the emergency room exit with steady gait without incident. The patient is waiting in the emergency department waiting room for transportation home, patient reports that he contacted his nephew to give him a ride home. Dragon Disclaimer Dragon Disclaimer This electronic medical record was generated, in whole or in part, using a voice recognition dictation system. Departure Departure: Impression: Primary Impression: Left against medical advice Additional Impressions: Chest pain Unstable angina Disposition: 07 AMA/ELOPED/LWBS Condition: GUARDED Referrals: [facility] SOLIS (PCP) Patient Instructions: Discharge Against Medical Advice Additional Instructions: We have discussed admission to the hospital to further evaluate your chest pain and heart condition. You have refused this service, you have elected to leave AGAINST MEDICAL ADVICE, I have urged you to stay and continue treatment, you have adamantly refused admission to inpatient services and have further cardiology specialty follow-up for your chest pain and heart condition. Please return to the emergency room immediately for worsening conditions or other concerns. Patient does not wish to proceed with medical care recommended by GLORIA Alas. Patient given information related to possible complications, up to and including , which could occur as a result of leaving the hospital at this time. Patient verbalizes understanding of risks involved due to leaving against medical advice. Patient has signed AMA form. Problem Qualifiers Additional Impressions: Chest pain Chest pain type: unspecified Qualified Codes: R07.9 - Chest pain, unspecified GINNY ROGER APRN Oct 22, 2020 21:10
[2020-10-22 21:12] LABS: BASO # 0.1 x10^3/uL (0.0-0.2); BASO % 1 % (0-3); EOS # 0.2 x10^3/uL (0.0-0.7); EOS % 2 % (0-3); HEMATOCRIT 46.2 % (39.0-53.0); HEMOGLOBIN 15.3 g/dL (13.0-17.5); LYMPH # 1.8 x10^3/uL (1.0-4.8); LYMPH % 24 % (24-48); MEAN CORPUSCULAR HEMOGLOBIN 31 pg (25-35); MEAN CORPUSCULAR HGB CONC 33 g/dL (31-37); MEAN CORPUSCULAR VOLUME 94 fL (79-100); MONO # 0.5 x10^3/uL (0.0-1.1); MONO % 7 % (0-9); NEUT # 4.7 x10^3uL (1.8-7.7); NEUT % 65 % (31-73); PLATELET COUNT 207 x10^3/uL (140-400); RED BLOOD COUNT 4.89 x10^6/uL (4.30-5.70); RED CELL DISTRIBUTION WIDTH 14.3 % (11.5-14.5); WHITE BLOOD COUNT 7.3 x10^3/uL (4.0-11.0)
--- NOTE | 2020-10-22 21:17 | RAD ---
Chest radiograph 10/22/2020 8:32 PM INDICATION: Chest pain COMPARISON: 07/19/2020 TECHNIQUE: Frontal and lateral views of the chest are provided. FINDINGS: The cardiomediastinal silhouette is within normal limits. There are no pleural effusions. There is no pulmonary vascular congestion. There is no pneumothorax. The lungs are clear. Pulmonary emphysematous changes are present. No significant osseous abnormality is identified. IMPRESSION: Pulmonary emphysematous changes without acute cardiopulmonary process. Electronically signed by: Anastasiia Camarena MD (10/22/2020 8:53 PM) FLOR[facility]
[2020-10-22 21:21] LABS: CALCIUM 8.3 mg/dL (8.5-10.1); GFR 75.5; POTASSIUM 3.8 mmol/L (3.5-5.1)
[2020-10-22 21:36] LABS: ALBUMIN 3.8 g/dL (3.4-5.0); MAGNESIUM 2.4 mg/dL (1.8-2.4); PHOSPHORUS 4.9 mg/dL (2.6-4.7); TOTAL BILIRUBIN 0.2 mg/dL (0.2-1.0); TOTAL PROTEIN 7.7 g/dL (6.4-8.2)
[2020-10-22 21:53] VITALS: BP 129/75
--- NOTE | 2020-10-23 13:13 | EKG ---
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
--- NOTE | 2020-10-23 13:14 | EKG ---
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
== END 2020-10-22 22:18 | disposition left against medical advice (07) ==
LOC: ER 20:03
DX: R07.2 Precordial pain (principal); I25.10 Atherosclerotic heart disease of native coronary artery without angina pectoris; J44.9 Chronic obstructive pulmonary disease, unspecified; I10 Essential (primary) hypertension; I25.2 Old myocardial infarction; F17.210 Nicotine dependence, cigarettes, uncomplicated; F10.20 Alcohol dependence, uncomplicated; Z79.899 Other long term (current) drug therapy; Y90.8 Blood alcohol level of 240 mg/100 ml or more
CPT/HCPCS: 36415; 71046; 80053; 82553; 83690; 83735; 83880; 84100; 84484; 85025; 93005; 96361; 96374; 96376; 99285; G0480; J2270; J7030

== ENCOUNTER 2020-11-13 17:20 | Inpatient (IN) | payer MEDICARE, MEDICAID ==
[~2020-11-13] VITALS: Ht 193 cm; Wt 88.7 kg
[~2020-11-13 17:20] MED LIST changes: +LISI10TA16 PO; -LISI10TA2 PO
--- NOTE | 2020-11-13 17:46 | PHYS DOC ---
Past History Past Medical History: Angina, CAD, COPD, Hypertension, Hypotension, [place] (DEYA OBBBY APRN) Past Surgical History: Other Additional Past Surgical Histo: 8-10 cardiac stents (DEYA BOBBY APRN) Smoking: Cigarettes, Greater than 1 pack/day Alcohol Use: Heavy Drug Use: None (DEYA BOBBY APRN) General Adult HPI: HPI: Patient is a 64-year-old male who presents with fever, shortness of breath. EMS reports patient was satting high 80s on room air. Patient is not normally on oxygen at home. Patient was placed on 3 L and has been satting 96 to 97%. Patient denies nausea, vomiting, diarrhea. Patient denies being around anyone positive for Covid. Patient has history of COPD, hypertension. (DEYA BOBBY APRN) Review of Systems: Review of Systems: Constitutional: Reports fever and chills Eyes: Denies change in visual acuity HENT: Denies nasal congestion or sore throat Respiratory: Reports cough and shortness of breath Cardiovascular: Denies chest pain or edema GI: Denies abdominal pain, nausea, vomiting, bloody stools or diarrhea : Denies dysuria Musculoskeletal: Denies back pain or joint pain Integument: Denies rash Neurologic: Denies headache, focal weakness or sensory changes Endocrine: Denies polyuria or polydipsia Lymphatic: Denies swollen glands Psychiatric: Denies depression or anxiety (DEYA BOBBY APRN) Allergies: Allergies: Allergies Coded Allergies Type Severity Reaction Last Updated Verified No Known Drug Allergies 06/18/17 No (EDYA BOBBY APRN) Physical Exam: PE: Constitutional: Well developed, well nourished, no acute distress, non-toxic appearance. [] HENT: Normocephalic, atraumatic, bilateral external ears normal, oropharynx moist, no oral exudates, nose normal. [] Eyes: PERRLA, EOMI, conjunctiva normal, no discharge. [] Neck: Normal range of motion, no tenderness, supple, no stridor. [] Cardiovascular:Heart rate regular rhythm, no murmur [] Lungs & Thorax: Bilateral breath sounds clear to auscultation [] Abdomen: Bowel sounds normal, soft, no tenderness, no masses, no pulsatile masses. [] Skin: Warm, dry, no erythema, no rash. [] Back: No tenderness, no CVA tenderness. [] Extremities: No tenderness, no cyanosis, no clubbing, ROM intact, no edema. [] Neurologic: Alert and oriented X 3, normal motor function, normal sensory function, no focal deficits noted. [] Psychologic: Affect normal, judgement normal, mood normal. [] (DEYA BOBBY APRN) EKG: EKG: Sinus tachycardia, otherwise normal EKG. Heart rate 102 bpm. [] (DEYA BOBBY APRN) Radiology/Procedures: Radiology/Procedures: [] INDICATION: Reason: SHORTNESS OF BREATH / Spl. Instructions: / History: COMPARISON: October 22, 2020 FINDINGS: Single view of chest obtained. Disorganized pulmonary markings bilaterally with relative lucency near apices. This could be from causes such as emphysema. Patchy opacities are seen within the bilateral lungs most severe near lung bases. Cardiac silhouette is unremarkable except calcific atherosclerosis and apparent stent projecting over right side of the heart IMPRESSION: * Patchy opacities bilaterally could be from edema or infiltrate. Electronically signed by: Mumtaz Hurtado MD (11/13/2020 6:06 PM) [id number] CTA CHEST INDICATION: elevated ddimer, dyspnea Comparison: None. TECHNIQUE: Following the uneventful administration of intravenous contrast, 75 cc Omnipaque 350, axial CT sections were obtained through the lungs and upper abdomen. Multiplanar reconstructions and MIP images were obtained. RS compliance statement: One or more of the following individualized dose reduction techniques were utilized for this examination: 1. Automated exposure control 2. Adjustment of the mA and/or kV according to patient size 3. Use of iterative reconstruction technique FINDINGS: Pulmonary arteries: No evidence of pulmonary thromboembolic disease. Lungs and Airways: Mild scattered groundglass opacities. Centrilobular emphysema . Bronchial wall thickening. Endobronchial mucous plugging. Pleura: The pleural spaces are normal. Heart and Mediastinum: Left thyroid 3.2 cm nodule. No axillary or supraclavicular lymphadenopathy. No mediastinal, hilar or retrocrural lymphadenopathy. Normal cardiac size. Coronary artery atherosclerotic disease and stents. No pericardial effusion. The great vessels of the thorax are normal. Abdomen: Limited images through the upper abdomen show no acute findings. Bones and Soft Tissues: The visualized bones and chest wall soft tissues are within normal limits. IMPRESSION: 1. No evidence of pulmonary thromboembolic disease. 2. Scattered bilateral ground glass opacities, which could represent multifocal infection or edema. 3. Left thyroid 3.2 cm nodule could be further evaluated with thyroid ultrasound, if not performed previously. Electronically signed by: Hai Simeon MD (11/13/2020 8:04 PM) [facility] (DEYA BOBBY APRN) Heart Score: Risk Factors: Risk Factors: DM, Current or recent (<one month) smoker, HTN, HLP, family history of CAD, obesity. Risk Scores: Score 0 - 3: 2.5% MACE over next 6 weeks - Discharge Home Score 4 - 6: 20.3% MACE over next 6 weeks - Admit for Clinical Observation Score 7 - 10: 72.7% MACE over next 6 weeks - Early Invasive Strategies (DEYA BOBBY APRN) Course & Med Decision Making: Course & Med Decision Making Pertinent Labs and Imaging studies reviewed. (See chart for details) [Patient is a 64-year-old male who presents with fever, shortness of breath. EMS reports patient was satting high 80s on room air. Patient is not normally on oxygen at home. Patient was placed on 3 L and has been satting 96 to 97%. Patient denies nausea, vomiting, diarrhea. Patient denies being around anyone positive for Covid. Patient has history of COPD, hypertension.] Chest x-ray shows patchy opacities bilaterally could be from edema or infiltrate. Lactic acid is 2.1., Lactate is 614, CK 164, D-dimer is elevated at 0.89. CTA ordered to rule out PE. Spoke with Dr. Madrigal about admitting patient for PUI, hypoxia, CAP. Dr. Madrigal will accept patient. CTA negative for PE. CTA does show scattered bilateral ground glass opacities, which could represent multifocal infection or edema. Rocephin, Azithromycin, Dexamethasone given. Patient was stable on admission. Impression 1.CAP 2.Hypoxia 3.PUI (DEYA BOBBY APRN) Dragon Disclaimer: Dragon Disclaimer: This electronic medical record was generated, in whole or in part, using a voice recognition dictation system. (DEYA BOBBY APRN) Departure Departure: Impression: Primary Impression: Person under investigation for COVID-19 Disposition: ADMITTED INPT THIS HOSP Admitting Physician: Jenny Madrigal (DEYA BOBBY APRN) Condition: STABLE Referrals: URI SOLIS (PCP) Attending Signature Attending Signature I have reviewed the PA/REVIEW ASSISTANT's note and plan of care. I was available for consultation as needed during the patient's visit in the emergency department. I agree with the clinical impression, plan, and disposition. (GINNY VALENZUELA DO) DEYA BOBBY APRN Nov 13, 2020 17:46 GINNY VALENZUELA DO Nov 14, 2020 00:33
[2020-11-13] MEDS ORDERED: IV NORMAL SALINE 1,000ML 1,000 ML IV ONE (18:00)
[2020-11-13] MEDS ORDERED: DEXAMETHASONE SOD PHOS 10 MG/ML VIAL. IVP ONE (18:00)
--- NOTE | 2020-11-13 18:08 | RAD ---
INDICATION: Reason: SHORTNESS OF BREATH / Spl. Instructions: / History: COMPARISON: October 22, 2020 FINDINGS: Single view of chest obtained. Disorganized pulmonary markings bilaterally with relative lucency near apices. This could be from cau ses such as emphysema. Patchy opacities are seen within the bilateral lungs most severe near lung bases. Cardiac silhouette is unremarkable except calcific atherosclerosis and apparent stent projecting over right side of the heart IMPRESSION: * Patchy opacities bilaterally could be from edema or infiltrate. Electronically signed by: Mumtaz Hurtado MD (11/13/2020 6:06 PM) [id number]
[2020-11-13 18:32] LABS: BASO % 0 % (0-3); EOS % 0 % (0-3); HEMATOCRIT 46.3 % (39.0-53.0); HEMOGLOBIN 15.5 g/dL (13.0-17.5); LYMPH # 0.4 x10^3/uL (1.0-4.8); LYMPH % 7 % (24-48); MEAN CORPUSCULAR HEMOGLOBIN 31 pg (25-35); MEAN CORPUSCULAR HGB CONC 33 g/dL (31-37); MEAN CORPUSCULAR VOLUME 93 fL (79-100); MONO # 0.5 x10^3/uL (0.0-1.1); MONO % 9 % (0-9); NEUT # 4.8 x10^3uL (1.8-7.7); NEUT % 85 % (31-73); PLATELET COUNT 220 x10^3/uL (140-400); RED BLOOD COUNT 4.97 x10^6/uL (4.30-5.70); RED CELL DISTRIBUTION WIDTH 14.2 % (11.5-14.5); WHITE BLOOD COUNT 5.7 x10^3/uL (4.0-11.0)
--- NOTE | 2020-11-13 18:36 | EKG ---
[address] [address] Test Date: 2020-11-13 Test Time: 18:19:24 Pat Name: KYLE PERRY Department: Room: Gender: M Language Teacher: ISMAEL : 1955 Requested By: DEYA BOBBY Order Number: [id number] Reading MD: Measurements Intervals [place] Rate: 102 P: 46 GA: 154 QRS: 56 QRSD: 112 T: 36 QT: 324 QTc: 426 Interpretive Statements SINUS TACHYCARDIA OTHERWISE NORMAL ECG RI6.02 No previous ECG available for comparison
[2020-11-13 18:50] LABS: CALCIUM 8.5 mg/dL (8.5-10.1); CREATININE 1.3 mg/dL (0.7-1.3); GFR 55.8; POTASSIUM 3.9 mmol/L (3.5-5.1)
[2020-11-13 19:01] LABS: ALBUMIN 2.9 g/dL (3.4-5.0); ALBUMIN/GLOBULIN RATIO 0.5 (1.0-1.7); C REACTIVE PROTEIN 159.1 mg/L (0-3.3); TOTAL BILIRUBIN 0.6 mg/dL (0.2-1.0); TOTAL PROTEIN 8.2 g/dL (6.4-8.2)
[2020-11-13] MEDS ORDERED: IOHEXOL 350 MG/ML 100 ML VIAL. IV ONE (19:15)
[2020-11-13 19:29] LABS: BACTERIA,URINE 0 /HPF (0-FEW); BILIRUBIN,URINE SMALL (NEG); CLARITY,URINE CLEAR; COLOR,URINE AMBER; GLUCOSE,URINE NEG (NEG); NITRITE,URINE NEG (NEG); RBC,URINE 0 /HPF (0-2); UROBILINOGEN,URINE 0.2 mg/dL (0.2 mg/dL); WBC,URINE 0 /HPF (0-4)
[2020-11-13] MEDS ORDERED: CONTRAST GIVEN. MC PRN (19:30)
[2020-11-13] MEDS ORDERED: AZITHROMYCIN 500 MG in IV NORMAL SALINE 250ML 250 ML IV ONE (19:30)
--- NOTE | 2020-11-13 20:06 | RAD ---
CTA CHEST INDICATION: elevated ddimer, dyspnea Comparison: None. TECHNIQUE: Following the uneventful administration of intravenous contrast, 75 cc Omnipaque 350, axia l CT sections were obtained through the lungs and upper abdomen. Multiplanar reconstructions and MIP images were obtained. PQRS compliance statement: One or more of the following individualized dose reduction techniques were utilized for this examinat ion: 1. Automated exposure control 2. Adjustment of the mA and/or kV according to patient size 3. Use of iterative reconstruction technique FINDINGS: Pulmonary arteries: No evidence of pulmonary thromboembolic disease. Lungs and Airways: Mild scattered groundglass opacities. Centrilobular emphysema . Bronchial wall thi ckening. Endobronchial mucous plugging. Pleura: The pleural spaces are normal. Heart and Mediastinum: Left thyroid 3.2 cm nodule. No axillary or supraclavicular lymphadenopathy. No mediastinal, hilar or retrocrural lymphadenopathy. Normal cardiac size. Coronary artery atherosclero tic disease and stents. No pericardial effusion. The great vessels of the thorax are normal. Abdomen: Limited images through the upper abdomen show no acute findings. Bones and Soft Tissues: The visualized bones and chest wall soft tissues are within normal limits. IMPRESSION: 1. No evidence of pulmonary thromboembolic disease. 2. Scattered bilateral ground glass opacities, which could represent multifocal infection or edema. 3. Left thyroid 3.2 cm nodule could be further evaluated with thyroid ultrasound, if not performed pr eviously. Electronically signed by: Hai Simeon MD (11/13/2020 8:04 PM) [facility]
[2020-11-13] MEDS ORDERED: IV NORMAL SALINE 50ML 50 ML ONE (20:12)
[2020-11-13] MEDS ORDERED: AZITHROMYCIN 500 MG VIAL. IV ONE (20:12)
[2020-11-13] MEDS ORDERED: IV NORMAL SALINE 250ML 250 ML ONE (20:12)
[2020-11-13] MEDS ORDERED: cefTRIAXone SODIUM 1 GM VIAL ONE (20:12)
[2020-11-13 21:45] VITALS: BP 114/70
[2020-11-13] MEDS ORDERED: TICA90TA PO (23:31)
[2020-11-14] MEDS ORDERED: ALBU2.5V8 IH (00:02)
[2020-11-14] MEDS: IV NORMAL SALINE 1,000ML 1,000 ML IV SCH ×2 (00:22→10:05)
[2020-11-14] MEDS: TICAGRELOR 90 MG TABLET. PO SCH ×3 (00:22→21:29)
[2020-11-14] MEDS ORDERED: ATORVASTATIN CALCIUM 20 MG TABLET PO SCH (01:00)
[2020-11-14 01:14] VITALS: BP 116/64
[2020-11-14 06:06] VITALS: BP 108/64
[2020-11-14 06:41] LABS: ALBUMIN 2.5 g/dL (3.4-5.0); ALBUMIN/GLOBULIN RATIO 0.5 (1.0-1.7); GFR 75.5; POTASSIUM 4.2 mmol/L (3.5-5.1); TOTAL BILIRUBIN 0.5 mg/dL (0.2-1.0); TOTAL PROTEIN 7.1 g/dL (6.4-8.2)
[2020-11-14 08:22] LABS: BASO % 1 % (0-3); EOS % 0 % (0-3); HEMATOCRIT 44.5 % (39.0-53.0); HEMOGLOBIN 14.7 g/dL (13.0-17.5); LYMPH # 0.4 x10^3/uL (1.0-4.8); LYMPH % 11 % (24-48); MEAN CORPUSCULAR HEMOGLOBIN 31 pg (25-35); MEAN CORPUSCULAR HGB CONC 33 g/dL (31-37); MEAN CORPUSCULAR VOLUME 93 fL (79-100); MONO # 0.3 x10^3/uL (0.0-1.1); MONO % 9 % (0-9); NEUT # 2.6 x10^3uL (1.8-7.7); NEUT % 80 % (31-73); PLATELET COUNT 212 x10^3/uL (140-400); RED BLOOD COUNT 4.77 x10^6/uL (4.30-5.70); RED CELL DISTRIBUTION WIDTH 14.6 % (11.5-14.5); WHITE BLOOD COUNT 3.2 x10^3/uL (4.0-11.0)
[2020-11-14] MEDS: LISINOPRIL 10 MG TABLET PO SCH ×2 (09:00→15:09)
[2020-11-14 09:34] VITALS: BP 112/65
[2020-11-14] MEDS: PANTOPRAZOLE 40 MG TABLET. PO SCH (09:58)
[2020-11-14] MEDS: METOPROLOL TART IMMED RELEASE 50 MG TABLET PO SCH ×2 (10:00→21:29)
[2020-11-14 12:56] LABS: PLT ESTIMATE ADEQUATE (ADEQUATE)
[2020-11-14] MEDS: IPRATROPIUM/ALBUTEROL 20/100mcg/INH INHALER. INH SCH ×3 (13:00→21:29)
--- NOTE | 2020-11-14 14:32 | HP ---
ADMIT DATE: 11/14/2020 HISTORY OF PRESENT ILLNESS: The patient is a 64-year-old male patient who presented to the Emergency Room of [facility] with complaint of fever, shortness of breath. EMS reports that the patient's oxygen saturation was only 80% on his room air. He is not on any oxygen at home. He was placed on 3 liters, and his oxygen saturation was 96-97%. He denied any nausea, vomiting, but has multiple episodes of diarrhea. Denied being around any ____ positive for COVID. He was extensively investigated in the Emergency Room and has had lab work as well as imaging studies. His CBC was unremarkable. D-dimer was elevated at 0.89. His chemistry showed that he has deranged liver enzyme with elevated AST, ALT, alkaline phosphatase. His lactate dehydrogenase was also elevated as well as his creatinine kinase. C-reactive protein was high at 159. His urinalysis essentially unremarkable. His chest x-ray showed patchy opacities bilaterally, could be from either edema or infiltrate. CT angio of the chest showed that there is no evidence of pulmonary thromboembolic disease; however, he has scattered bilateral ground glass opacities, which could represent multifocal infection or edema. His left thyroid 3.3 cm nodule could be further evaluated with thyroid ultrasound. The patient was basically admitted with likely coronavirus. He was actually swabbed at the Emergency Room; however, the results are still pending at the time of this dictation. Has acute hypoxic respiratory failure, COPD exacerbation and was treated with IV Rocephin, Zithromax and dexamethasone. PAST MEDICAL HISTORY: Significant for chronic obstructive pulmonary disease, coronary artery disease, status post PCI with 9 stent deployment, hypertension, hyperlipidemia. PAST SURGICAL HISTORY: Significant for PCI with multiple stent deployment. ALLERGIES: He has no known drug allergies. MEDICATIONS: He is currently on the following medications: Albuterol sulfate 1 puff every 4 hours, Brilinta 90 mg twice a day, Crestor 40 mg at bedtime, nitroglycerin 0.4 mg sublingually every 5 minutes x 3, metoprolol tartrate 50 mg twice a day, lisinopril 10 mg daily, Protonix 40 mg daily. FAMILY HISTORY: He has 2 brothers who are older and 3 sisters who are , one from fire, one from car accident and one apparently has choked . His father of COPD complication. Mother because of diabetes and congestive heart failure. SOCIAL HISTORY: He is , has a daughter and a son. He smokes a pack a day, drinks about 12 packs of beer a week. Does not use any drugs. He is currently on disability. REVIEW OF SYSTEMS: As per history of present illness. PHYSICAL EXAMINATION: GENERAL: On arrival to the Emergency Room, the patient looked slightly tachypneic, but there was no pallor, jaundice, cyanosis or thyromegaly. No jugular venous distention. No limb edema. VITAL SIGNS: His heart rate was 104, blood pressure was 112/53, temperature was 99.2, respiratory rate 24 and oxygen saturation was 96% on 3 liters of oxygen. HEAD, EYES, EARS, NOSE AND THROAT: Showed normocephalic and atraumatic. NECK: Supple. HEART: Showed normal first and second heart sounds. No gallop or murmur. CHEST: Shows central trachea, equal bilateral chest expansion, air entry, vesicular breath sounds with crepitation mostly bilaterally posteriorly. ABDOMEN: Slightly distended, soft, nontender. NEUROLOGIC: He was grossly intact. LABORATORY DATA: His lab work on arrival showed a white cell count 5700, hemoglobin 15.5, hematocrit 46, MCV 93, and platelet count 220,000 with manual differential showed 85% polymorphs, 7% lymphocytes, 9% monocytes. His chemistry showed a serum sodium of 125, potassium 3.9, chloride 91, bicarbonate 22, anion gap of 12, BUN 25, creatinine 1.3, estimated GFR was 55 mL per minute. His glucose was 85, calcium was 8.5. Total bilirubin and alkaline phosphatase normal. AST and ALT elevated. Lactate dehydrogenase was high at 614 and CK was high at 464. His C-reactive protein was high at 159 mg/dL. Total protein was 8.2, albumin was 2.9. His D-dimer was 0.89. His urinalysis essentially unremarkable. His chest x-ray and CT angio were both consistent with scattered bilateral ground glass opacities, which could represent multifocal infection or edema. No evidence of pulmonary thromboembolic disease. ASSESSMENT AND PLAN: The patient was admitted and was continued on all his medications, was treated with Zithromax, ceftriaxone as well as dexamethasone. We will add also remdesivir. SYED SHOOK MD DR: IRAIDA/klaudia JOB#: [id number] / [id number]
[2020-11-14] MEDS: DEXAMETHASONE SOD PHOS 4 MG/ML VIAL. IVP SCH (15:08)
[2020-11-14] MEDS: AZITHROMYCIN 250 MG TABLET. PO SCH (15:08)
[2020-11-14 15:32] VITALS: BP 110/72
[2020-11-14 19:50] VITALS: BP 121/64
[2020-11-14] MEDS: LACTOBACILLUS RHAMNOSUS GG 1 CAPSULE. PO SCH (21:29)
[2020-11-14 22:52] VITALS: BP 118/63
[2020-11-15 05:11] VITALS: BP 118/69
[2020-11-15 06:53] LABS: ALBUMIN 2.6 g/dL (3.4-5.0); ALBUMIN/GLOBULIN RATIO 0.6 (1.0-1.7); CALCIUM 8.1 mg/dL (8.5-10.1); CREATININE 0.9 mg/dL (0.7-1.3); GFR 85.2; TOTAL BILIRUBIN 0.5 mg/dL (0.2-1.0); TOTAL PROTEIN 7.1 g/dL (6.4-8.2)
[2020-11-15 08:32] LABS: HEMATOCRIT 45.1 % (39.0-53.0); HEMOGLOBIN 14.8 g/dL (13.0-17.5); RED BLOOD COUNT 4.82 x10^6/uL (4.30-5.70); RED CELL DISTRIBUTION WIDTH 14.1 % (11.5-14.5); WHITE BLOOD COUNT 8.8 x10^3/uL (4.0-11.0)
[2020-11-15 08:50] LABS: POTASSIUM 3.4 mmol/L (3.5-5.1)
[2020-11-15] MEDS: IPRATROPIUM/ALBUTEROL 20/100mcg/INH INHALER. INH SCH (09:38)
[2020-11-15] MEDS: DEXAMETHASONE SOD PHOS 4 MG/ML VIAL. IVP SCH (09:38)
[2020-11-15] MEDS: AZITHROMYCIN 250 MG TABLET. PO SCH (09:39)
[2020-11-15] MEDS: METOPROLOL TART IMMED RELEASE 50 MG TABLET PO SCH (09:39)
[2020-11-15] MEDS: PANTOPRAZOLE 40 MG TABLET. PO SCH (09:39)
[2020-11-15] MEDS: LACTOBACILLUS RHAMNOSUS GG 1 CAPSULE. PO SCH (09:39)
[2020-11-15] MEDS: LISINOPRIL 10 MG TABLET PO SCH (09:39)
[2020-11-15] MEDS: TICAGRELOR 90 MG TABLET. PO SCH (09:39)
[2020-11-15 10:53] VITALS: BP 135/59
--- NOTE | 2020-11-15 11:42 | DS ---
DATE OF DISCHARGE: 11/15/2020 ATTENDING PHYSICIANS: Dr. Madrigal/Dr. Eisenberg. FINAL DISCHARGE DIAGNOSES: 1. Acute on chronic respiratory failure. 2. Exacerbation of chronic obstructive pulmonary disease. 3. Infiltrate at bases consistent with COVID-19 pneumonia. 4. Chronic alcoholism. 5. Hyperlipidemia. 6. Essential hypertension. 7. Gastroesophageal reflux disease. HISTORY AND PHYSICAL: This is a 64-year-old gentleman who still smokes heavily and drinks on a regular basis. He was admitted to the ED with increasing shortness of breath, hypoxemia and chest x-ray evidence of a diffuse nonspecific coffee-ground appearing infiltrate in the bases consistent with COVID-19 pneumonia. PHYSICAL EXAMINATION: Please see the dictated note. PERTINENT LABORATORY AND X-RAY STUDIES: His serology was positive for coronavirus on admission. Hemoglobin was maintained at 15.5 g/dL with a white count of 5700. Electrolytes showed stable creatinine of 1.0 mg/dL, potassium 4.2 mEq, sodium 133. Transaminases slightly elevated with an AST of 238 and ALT of 116. Bilirubin was normal at 0.5. Cardiac enzymes negative for coronary ischemia. IMAGING STUDIES: He had a CT of the chest, which showed no evidence of pulmonary emboli; however, he did have scattered bilateral ground glass opacities at the base representing atypical pneumonia. COURSE IN THE HOSPITAL: The patient was admitted. He was started on empiric intravenous antibiotics, Decadron and continuation of home meds. He did well. Oxygen saturation initially required supplemental oxygen. He was weaned off and he had adequate saturation 90% on room air prior to discharge. On the third day, he wanted to go home. He was moving air pretty well, but he was still having some exertional hypoxemia. He did not want to wear supplemental oxygen because of his smoking history. He will follow up with his PCP. Therefore, on the third hospital day, his vital signs were stable. His blood pressure was normal, normal heart rate and he was afebrile. At this time, I recommended cephalexin 500 mg p.o. t.i.d. for 7 more days and stop; prednisone 60 mg daily for the next 7 days and stop and finally Tussionex 5 mL q. 12 hours p.r.n. cough. He should continue his scheduled albuterol inhaler every 4 hours, lisinopril 10 mg daily, metoprolol 50 mg b.i.d., nitroglycerin p.r.n., Protonix 40 mg daily, Crestor 40 mg daily, and Brilinta 90 mg b.i.d. He will follow up with his PCP in the regular scheduled time. Strong encouragement to avoid further alcohol and tobacco use whether or not he will quit drinking or smoking remains to be seen. In any event, the patient was discharged from our hospital in stable condition with adequate room air saturations in stable condition with explicit instructions and followup care. TOTAL DISCHARGE TIME SPENT: 41 minutes. NOÉ EISENBERG MD DR: ALBERTO/klaudia JOB#: [id number] / [id number] Michelle Ruiz MD
== END 2020-11-15 12:00 | disposition home or self-care (01) | DRG 177 ==
LOC: ER 17:20 → 1 SOUTH 20:36
PROVIDERS: ADMIT Internal Medicine; ATTEND Internal Medicine
DX: U07.1 COVID-19 (principal); J12.82 Pneumonia due to coronavirus disease 2019; J96.21 Acute and chronic respiratory failure with hypoxia; J44.0 Chronic obstructive pulmonary disease with (acute) lower respiratory infection; J44.1 Chronic obstructive pulmonary disease with (acute) exacerbation; E78.5 Hyperlipidemia, unspecified; F10.20 Alcohol dependence, uncomplicated; F17.210 Nicotine dependence, cigarettes, uncomplicated; I10 Essential (primary) hypertension; I25.10 Atherosclerotic heart disease of native coronary artery without angina pectoris; K21.9 Gastro-esophageal reflux disease without esophagitis; Z82.49 Family history of ischemic heart disease and other diseases of the circulatory system; Z82.5 Family history of asthma and other chronic lower respiratory diseases; Z83.3 Family history of diabetes mellitus; Z95.5 Presence of coronary angioplasty implant and graft; I25.2 Old myocardial infarction
CPT/HCPCS: 36415; 71045; 71275; 80053; 81001; 82550; 83605; 83615; 84484; 85025; 85027; 85379; 86140; 87040; 93005; 96361; 96365; 96368; 96375; 99285; J0456; J0696; J1100; J7050; Q9967; U0003; J7030

== ENCOUNTER 2021-01-21 19:58 | Emergency (ER) | payer MEDICARE, MEDICAID ==
[~2021-01-21] VITALS: Ht 193 cm; Wt 88.7 kg
[~2021-01-21 19:58] MED LIST changes: +ALBU2.5V8 IH; +TICA90TA PO
[2021-01-21] MEDS: IBUPROFEN 600 MG TABLET. PO ONE (20:30)
--- NOTE | 2021-01-21 20:41 | PHYS DOC ---
Past History Past Medical History: Angina, CAD, COPD, Hypertension, Hypotension, [place] Past Surgical History: Other Additional Past Surgical Histo: 8-10 cardiac stents Smoking: Cigarettes, Greater than 1 pack/day Alcohol Use: Heavy Drug Use: None Adult General Chief Complaint Chief Complaint: TOE PROBLEM HPI HPI Patient is a 65-year-old male who presents with a chief complaint of right second toe pain. States that he has a hammertoe and has some soreness across the toe over the last few days. Denies any traumas, history of gout, fevers. States that the toenail on his hammertoe occurs around and is uncomfortable. Patient requested that we pull his entire toenail out. Discussed with patient that his toenail is healthy and pulling on a healthy no nail is not advised. Review of Systems Review of Systems Constitutional: Denies fever or chills [] Eyes: Denies change in visual acuity, redness, or eye pain [] HENT: Denies nasal congestion or sore throat [] Respiratory: Denies cough or shortness of breath [] Cardiovascular: No additional information not addressed in HPI [] GI: Denies abdominal pain, nausea, vomiting, bloody stools or diarrhea [] : Denies dysuria or hematuria [] Musculoskeletal: Denies back pain or joint pain [] Integument: Denies rash or skin lesions [] Neurologic: Denies headache, focal weakness or sensory changes [] Endocrine: Denies polyuria or polydipsia [] All other systems were reviewed and found to be within normal limits, except as documented in this note. Current Medications Current Medications Current Medications Medications (Trade) Dose Ordered Sig/Nathalie Start Time Stop Time Status Last Admin Dose Admin Ibuprofen (Motrin) 600 mg 1X ONCE 01/21/21 20:30 01/21/21 20:31 DC Allergies Allergies Allergies Coded Allergies Type Severity Reaction Last Updated Verified No Known Drug Allergies 06/18/17 No Physical Exam Physical Exam Constitutional: Well developed, well nourished, no acute distress, non-toxic appearance. [] HENT: Normocephalic, atraumatic, bilateral external ears normal, oropharynx moist, no oral exudates, nose normal. [] Eyes: PERRLA, EOMI, conjunctiva normal, no discharge. [] Neck: Normal range of motion, no tenderness, supple, no stridor. [] Cardiovascular:Heart rate regular rhythm, no murmur [] Lungs & Thorax: Bilateral breath sounds clear to auscultation [] Abdomen: Bowel sounds normal, soft, no tenderness, no masses, no pulsatile masses. [] Skin: Warm, dry, no erythema, no rash. [] Back: No tenderness, no CVA tenderness. [] Extremities: No tenderness, no cyanosis, no clubbing, ROM intact, no edema. [] Neurologic: Alert and oriented X 3, normal motor function, normal sensory function, no focal deficits noted. [] Psychologic: Affect normal, judgement normal, mood normal. [] EKG EKG [] Radiology/Procedures Radiology/Procedures [] Heart Score C/O Chest Pain: N/A Risk Factors: Risk Factors: DM, Current or recent (<one month) smoker, HTN, HLP, family history of CAD, obesity. Risk Scores: Risk Factors: DM, Current or recent (<one month) smoker, HTN, HLP, family history of CAD, obesity. Course & Med Decision Making Course & Med Decision Making Patient is a 65-year-old male who presents with right second toe pain Vital signs not concerning. Physical exam noted above. Given ibuprofen, and ice [] Imaging not concerning. Discussed with patient that cutting out entire toenail because it is uncomfortable is not appropriate given that his nail and cuticle are healthy. Advised cutting his toenails at home. Advised to follow-up with primary care physician first thing in the morning to discuss ED visit. Gave return precautions to the ED. Patient grateful, verbalized understanding and agreed with plan of discharge. Dragon Disclaimer Dragon Disclaimer This electronic medical record was generated, in whole or in part, using a voice recognition dictation system. Departure Departure: Impression: Primary Impression: Toe pain Disposition: 01 DC HOME SELF CARE/HOMELESS Condition: GOOD Referrals: URI SOLIS (PCP) Patient Instructions: Hammer Toes Additional Instructions: Please read the attached information. You can use Tylenol, ibuprofen and ice as needed for pain control. Your imaging did not show any acute breaks or dislocations. Please wear appropriate footwear. Please call your primary care physician first thing in the morning to update on ED visit and set up a follow- up as soon as you can. Please come back to the ED with new or concerning symptoms. ALAN BROWN MD Jan 21, 2021 20:41
--- NOTE | 2021-01-21 21:28 | RAD ---
Exam: Right toes 3 views INDICATION: Pain at second toe TECHNIQUE: Frontal view of the foot with oblique and lateral views of the second digit Comparisons: None FINDINGS: Soft tissue swelling at the second digit. Bone mineralization is normal. No acute or healed fractures . Joint spaces are well-maintained. IMPRESSION: Soft tissue swelling at the second digit without underlying osseous abnormality identified. Electronically signed by: José Luis Simental MD (01/21/2021 9:25 PM) RONNY
[2021-01-21 21:35] VITALS: BP 141/75
== END 2021-01-21 21:35 | disposition home or self-care (01) ==
LOC: ER 19:58
DX: M79.674 Pain in right toe(s) (principal); J44.9 Chronic obstructive pulmonary disease, unspecified; I10 Essential (primary) hypertension; I25.2 Old myocardial infarction; F17.210 Nicotine dependence, cigarettes, uncomplicated
CPT/HCPCS: 73660; 99283-25